=== PATIENT | male | born 1950 | race Two or more races ===

== ENCOUNTER 2021-03-25 13:43 | Emergency (ER) | payer OTHER, SELFPAY ==
[2021-03-25 13:44] VITALS: BP 184/81; PULSE 81; RESP 17; TEMP 36.8; O2SAT 97; BMI 35.4
--- NOTE | 2021-03-25 13:56 | CT_ITS ---
PROCEDURE: CT KNEE LT WO CON CLINICAL HISTORY: stepped on by horse, knee trauma Posttraumatic pain COMPARISON: No exams were available for comparison TECHNIQUE: Axial images obtained with sagittal and coronal reformats. All CT scans at the facility use one or more dose reduction, viz: automated exposure control, ma/kV adjustment per patient size (including targeted exams where dose is matched to indication, i.e. head), or iterative reconstruction technique. FINDINGS: No acute fracture or dislocation is evident. Mild osteoarthritic changes are present involving all 3 compartments. Focal abnormal soft tissue density is present medial to the proximal tibia measuring 7 x 5.5 cm cephalad caudad and transverse with a thickness 2.2 cm consistent with a hematoma. This is along the superficial aspect of the proximal tibia medially and anteriorly. This does appear superficial to the anterior tibial fascia. There is mild generalized subcutaneous edema of the knee. Small knee joint effusion is present. IMPRESSION: 1. No evidence of acute fracture. 2. Prominent hematoma along the anterior and medial aspect of the proximal tibia 3. Mild osteoarthritic change with small knee joint effusion Dictated by: Nathan Eduardo MD 03/25/2021 16:09 Nathan Eduardo MD in [place] 03/25/2021 16:10
[2021-03-25 14:30] VITALS: BP 158/85; PULSE 70; O2SAT 97
--- NOTE | 2021-03-25 14:31 | HMH.EDEXTP ---
ED Disposition Clinical Impression: Traumatic hematoma of lower leg Disposition: Home, Self-Care Condition on Discharge: Good Additional Instructions: Return the emergency room for worsening pain swelling or any other concerns within the next 8 hours otherwise follow-up as recommended Prescriptions: Diclofenac Potassium [Diclofenac 50mg Tab] 50 mg PO BID PRN 10 Days #20 tab PRN Reason: Mild To Moderate Pain Transmission Status: Pending to [id number] Referrals: Provider,Referral, [Primary Care Provider] - - Critical Care Critical Care Time: No Attestation: On 03/25/21, the high probability of a clinically significant, sudden or life threatening deterioration of the following system(s) required my full and direct attention, intervention and personal management. The time I documented below is in addition to time spent performing reported procedures but includes the following listed in this critical care notation. Medical Decision Making - Medical Records Medical records reviewed: Yes: I reviewed the patient's medical records. - Camilo Inquiry Pt receiving controlled substance: No Vital Signs: 03/25/21 13:44 03/25/21 14:30 03/25/21 15:31 Temperature 98.2 F Temperature Source Oral Pulse Rate 70 79 Pulse Rate [Right] 81 Respiratory Rate 17 Blood Pressure 158/85 H 159/105 H Blood Pressure [Right Arm] 184/81 H Blood Pressure Mean 104 123 Blood Pressure Mean [Right Arm] 115 02 Sat by Pulse Oximetry 97 97 98 Medical Decision Narrative: 70-year-old male with left knee direct trauma 1 week ago and significant ecchymosis at the site now. He does have neurovascularly intact distally. X-ray reportedly negative last week. CT scan of knee obtained today. The scan of knee shows no acute fracture. He does have a resolving hematoma that was visualized. It appears that he had significant soft tissue damage during the injury. He does not have a primary care physician plan to give him referral for this and also recommend symptomatic treatment as well as anti-inflammatories for the pain. Extremity Problem HPI - General Chief complaint: Extremity Injury, Lower Stated complaint: wc 03/18 injury Lt foot Time Seen by Provider: 03/25/21 13:45 Mode of Arrival: Family Vehicle Limitations: No Limitations Description of Symptoms (Recalled from ER Triage Doc. by RN): PATIENT GIRLFRIEND REPORTS PATIENT WAS STEPPED ON HIS LEFT LEG BY A HORSE ON 03/18/21 CAUSING A LEFT LEG INJURY. UPON ASSESSMENT, PT'S LEG IS SWOLLEN. PT HAS A CAP REFILL BELOW INJURY LESS THAN 2 SECONDS. PT GIRLFRIEND REPORTS PT SPEAKS VERY LITTLE KHMER. PT AMBULATORY IN ED TRIAGE. PT GIRLFRIEND REPORTS A NEGATIVE EXRAY AT [facility] ON 03/18/21 - History of Present Illness HPI Narrative: -year-old male presents with persistent pain after getting stepped on by a horse a week ago. Reportedly he went to an outside hospital [facility] and had a negative x-ray and was discharged home. He has had persistent pain and swelling since that time dull nonradiating and difficulty bearing weight. MD Complaint: joint paint Onset (ago): week(s) (1) Consistency: constant Location: left Quality: dull - Related Data Previous Rx's Medication Instructions Recorded Albuterol Sulfate [Albuterol HFA 1 - 2 puffs IH Q4-6H PRN #1 inh 12/08/19 Inhaler] Azithromycin [Z-Tristian 250mg Tab*] 250 mg PO UD DOSE PK #6 tab 12/08/19 Mometasone/Formoterol [Dulera 200 2 puffs IH BID #1 hfa.aer.ad 12/08/19 Mcg/5 Mcg Inhaler] predniSONE [Deltasone 10mg tablet] 10 mg PO BID 5 Days #10 tab 12/08/19 Diclofenac Potassium [Diclofenac 50 mg PO BID PRN 10 Days #20 tab 03/25/21 50mg Tab] Allergies Allergy/AdvReac Type Severity Reaction Status Date / Time ibuprofen Allergy Verified 12/08/19 13:37 [facility] History - Hepatitis A Screen Drug use history?: No High risk sexual behaviors?: No History of sexually transmitted infection?: No Cur
[2021-03-25 15:31] VITALS: BP 159/105; PULSE 79; O2SAT 98
[2021-03-25 16:26] VITALS: BP 159/105; PULSE 79; RESP 18; TEMP 36.7; O2SAT 99
== END 2021-03-25 16:32 | disposition home or self-care (01) ==
PROVIDERS: Emergency Provider Emergency Medicine
DX: S80.10XA Contusion of unspecified lower leg, initial encounter (principal); W55.19XA Other contact with horse, initial encounter; Y92.69 Other specified industrial and construction area as the place of occurrence of the external cause; Y99.0 Civilian activity done for income or pay
CPT/HCPCS: 73700; 99282

== ENCOUNTER 2021-04-25 13:56 | Emergency (ER) | payer OTHER, SELFPAY ==
[2021-04-25 13:58] VITALS: BP 158/90; PULSE 75; RESP 16; TEMP 36.6; O2SAT 98; BMI 31.5
--- NOTE | 2021-04-25 15:37 | XR_ITS ---
PROCEDURE: XR TIBIA FIBULA LT 2V CLINICAL INDICATION: kicked by horse COMPARISON: No exams were available for comparison FINDINGS: No fracture or dislocation. No lytic or blastic change. There is normal mineralization. Minimal osteoarthritic change at the knee joint. Vascular calcification noted. Other findings:None. IMPRESSION: No acute findings. Dictated by: Nathan Eduardo MD 04/25/2021 17:05 Nathan Eduardo MD in [place] 04/25/2021 17:05
--- NOTE | 2021-04-25 15:37 | XR_ITS ---
PROCEDURE: XR FEMUR LT 2V CLINICAL INDICATION: kicked by horse Posttraumatic pain COMPARISON: No exams were available for comparison FINDINGS: No fracture or dislocation. No lytic or blastic change. There is normal mineralization. The joint spaces are well-preserved. No significant degenerative/arthritic changes. No erosive changes evident. Other findings:Small nonspecific area of soft tissue calcification noted along the proximal femoral shaft anteriorly IMPRESSION: No acute findings. Dictated by: Nathan Eduardo MD 04/25/2021 17:05 Nathan Eduardo MD in [place] 04/25/2021 17:05
[2021-04-25 15:43] VITALS: PULSE 68; O2SAT 91
[2021-04-25 16:00] VITALS: BP 152/88; PULSE 60
[2021-04-25 16:30] VITALS: BP 158/89; PULSE 56; O2SAT 95
--- NOTE | 2021-04-25 17:09 | HMH.EDGENADL ---
ED Disposition Clinical Impression: Lower extremity pain, left Disposition: Home, Self-Care Condition on Discharge: Good Referrals: Provider,Referral, [Primary Care Provider] - 3 days (PCP) Time of Disposition: 17:15 - Critical Care Critical Care Time: No Attestation: On 04/25/21, the high probability of a clinically significant, sudden or life threatening deterioration of the following system(s) required my full and direct attention, intervention and personal management. The time I documented below is in addition to time spent performing reported procedures but includes the following listed in this critical care notation. Medical Decision Making - Medical Records Medical records reviewed: Yes: I reviewed the patient's medical records. - Camilo Inquiry Pt receiving controlled substance: No Vital Signs: 04/25/21 13:58 04/25/21 15:43 04/25/21 16:00 Temperature 98 F Temperature Source Oral Pulse Rate 68 60 Pulse Rate [Radial] 75 Respiratory Rate 16 Blood Pressure 152/88 H Blood Pressure [Right Arm] 158/90 H Blood Pressure Mean 116 Blood Pressure Mean [Right Arm] 112 Blood Pressure Position [Right Arm] Sitting 02 Sat by Pulse Oximetry 98 91 L Oxygen Delivery Method Room Air 04/25/21 16:30 Temperature Temperature Source Pulse Rate 56 L Pulse Rate [Radial] Respiratory Rate Blood Pressure 158/89 H Blood Pressure [Right Arm] Blood Pressure Mean 106 Blood Pressure Mean [Right Arm] Blood Pressure Position [Right Arm] 02 Sat by Pulse Oximetry 95 Oxygen Delivery Method Orders (Tests/Meds): ORDERS Category Date Time Status XR tibia fibula LT 2V Stat Exams 04/25/21 15:37 Taken - Radiology Data #1 Image(s): Femur, Tib/Fib Image Reviewed: Yes I reviewed the patient's radiology image Preliminary Findings: Normal/NAD Medical Decision Narrative: 70yo M evaluated for follow-up of possible blood clot. Patient story does not make much sense but I have little concern for DVT as the patient's significant other reports he underwent ultrasound and CAT scan was only prescribed baby aspirin. Sonography is gone for the day so the patient will be provided a prescription to obtain repeat Dopplers as an outpatient. Patient ambulates without difficulty. He is appropriate stable for discharge home. General Adult HPI - General Chief complaint: PAIN Stated complaint: wants xray lt leg kicked by horse 03/25 Time Seen by Provider: 04/25/21 17:09 Mode of Arrival: Ambulatory Limitations: No Limitations Description of Symptoms (Recalled from ER Triage Doc. by RN): TO ED PER PVT CAR CONFUSING HX PT WAS KICKED BY A HORSE LAST MONTH AND SEEN AT THE OUTER [facility] WITH BLOOD CLOT LT LEG AND TOLD TO FOLLOW UP IN 3 WEEKS TO SEE IF HE STILL HAD A BLOOD CLOT PT CONTINUES TO C/O PAIN LT LOWER LEG SWELLING LT FOOT. - History of Present Illness HPI narrative: 70yo M reports to the emergency department for evaluation of left leg pain. Patient does not speak Guyanese but his girlfriend is at bedside and translates. Patient was kicked by a horse approximately 3 weeks ago and was taken to the emergency of [place] for evaluation. She reports there he underwent ultrasound and CAT scan and was sent home with a prescription for aspirin 81 mg. She reports no additional medications were prescribed at that time. They were told to follow-up in 2 to 3 weeks. Patient does not have a PCM so they reported to the ER. He complains of pain with ambulation. His girlfriend states his leg is no longer blue and has a normal color. He still has some swelling to the extremity. - Related Data Home Medications Medication Instructions Recorded Confirmed Aspirin [Aspirin 81mg chewable 81 mg PO DAILY 04/25/21 04/25/21 tab] Allergies Allergy/AdvReac Type Severity Reaction Status Date / Time ibuprofen Allergy Verified 12/08/19 13:37 [facility] History - Hepatitis A Screen Drug use history?: No
[2021-04-25 17:23] VITALS: BP 172/85; PULSE 56; RESP 18; TEMP 36.7; O2SAT 98
== END 2021-04-25 17:23 | disposition home or self-care (01) ==
PROVIDERS: Emergency Provider Family Medicine
DX: M79.605 Pain in left leg (principal); S80.12XD Contusion of left lower leg, subsequent encounter; W55.12XD Struck by horse, subsequent encounter
CPT/HCPCS: 73552; 73590; 99282

== ENCOUNTER 2021-05-12 11:17 | Emergency (ER) | payer OTHER, SELFPAY ==
[2021-05-12 11:39] VITALS: BP 155/94; PULSE 65; RESP 19; TEMP 36.8; O2SAT 98; BMI 30.1
--- NOTE | 2021-05-12 12:08 | HMH.EDUTC ---
[facility] Disposition Clinical Impression: Other contact with horse, subsequent encounter Disposition: Home, Self-Care Condition on Discharge: Good Instructions: DI for Leg Pain Additional Instructions: His venous doppler done today was negative for a dvt. It is reasonable to assume that with no blood clot present then he should be safe to return to work. He needs a primary care doctor. We will give you a list of ones that are taking new patients. Please call them and find a physician. If you have worsening swelling, redness, warmth over the affected area make sure you folllow up apap. GO TO THE ER FOR ANY WORSENING SYMPTOMS OR CONCERNS( I put in a referral to orthopedics (Dr. Walker). If you continues to have issues with pain and swelling at the site, please follow up with orthopedics. That would be the next step if he has more problems. But, he could follow up with a primary care physician for this too. Referrals: Provider,MD Guanaco [Primary Care Provider] - Giovanni Walker MD [Staff Physician] - Forms: Work/School Release Time of Disposition: 13:35 Medical Decision Making - Medical Records Medical records reviewed: No: I reviewed the patient's medical records. - Camilo Inquiry Pt receiving controlled substance: No Vital Signs: 05/12/21 11:39 05/12/21 13:41 Temperature 98.3 F 98 F Temperature Source Oral Pulse Rate 73 Pulse Rate [Left] 65 Respiratory Rate 19 18 Blood Pressure 150/95 H Blood Pressure [Right Arm] 155/94 H Blood Pressure Mean [Right Arm] 114 02 Sat by Pulse Oximetry 98 Oxygen Delivery Method Room Air - US Data US Images: Lower Extremity ED US Reviewed: Yes: I have reviewed the patient's US results Preliminary Findings: Normal/NAD [facility] HPI - General Stated complaint: needs to return back to work from w comp Time Seen by Provider: 05/12/21 12:25 Mode of Arrival: Ambulatory Source of Information: Patient Limitations: No Limitations Description of Symptoms (Recalled from Triage Doc. by RN): pt needs to be released back to work from workers comp injury. HEENT Symptoms (Recalled from RN notes): No Resp Symptoms (Recalled from RN notes): No Skin Symptoms (Recalled from RN notes): No MS Symptoms (Recalled from RN notes): No Functional Status (Recalled from RN notes): na - History of Present Illness Provider Complaint: He is here requesting to be seen to be released to go back to work. 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 He does not have a primary care physician to see for this. He was in the er around 3 weeks for the same thing. He was given an outpatient order for a venous doppler of the affected leg before he could be released. He has not had this test done. He states that his leg swelling is much better. He denies any leg pain or other complaints. He does still have a raised area just below his knee on the medial to anterior part of the leg. There is no redness or warmth. There is no additional leg swelling noted. - Worker's Comp Is this a Worker's Comp case?: No [facility] History - Hepatitis A Screen Drug use history?: No High risk sexual behaviors?: No History of sexually transmitted infection?: No Currently employed?: No Childcare worker?: No Do you have indoor plumbing?: Yes Do you have electricity?: Yes Attestation statement:: This patient has been screened for Hepatitis A risk factors. I have reviewed the patient's past medical history: Yes ROS Obtained: Yes All systems reviewed & no additional complaints - Constitutional Constitutional: Denies chills, Denies fever(s) - Cardiovascular Cardiovascular: Denies chest pain - Respiratory Respiratory: Denies chest congestion, Denies cough, Denies dyspnea, Denies coughing up blood - Musculoskeletal Musculoskeletal: Reports as per HPI - Integumentary/Breasts Skin/Breast: Denies redness, Denies rash, Denies wounds Physical Exam - Genera
--- NOTE | 2021-05-12 12:37 | CA_ITS ---
APPROVED REPORT Left Lower Extremity Venous Study for DVT. It Infrastructure Manager: TAYO Ferguson Lower Extremity Pain: RULE OUT BLOOD CLOT, Pt. was kicked by a horse Vein Imaging CFV (L): compressive, spontaneous, phasic, augmentation SFJ (L): compressive, spontaneous, phasic, augmentation FEM (L): compressive, spontaneous, phasic, augmentation POP (L): compressive, spontaneous, phasic, augmentation PTV (L): compressive, spontaneous, phasic, augmentation GSV (L): compressive, spontaneous, phasic, augmentation Peroneals (L):compressive, spontaneous, phasic, augmentation GAS (L): compressive, spontaneous, phasic, augmentation Findings Study suggests no evidence of DVT in the lower left extremity. Conclusion Study suggests no evidence of DVT in the lower left extremity. 6cm complex fluid collection anteromedial knee region consistent with suprapatellar effusion Electronically signed by : Nathan Eduardo MD 05/12/2021 15:35:31
[2021-05-12 13:41] VITALS: BP 150/95; PULSE 73; RESP 18; TEMP 36.6
== END 2021-05-12 13:42 | disposition home or self-care (01) ==
PROVIDERS: Emergency Provider Nurse Practitioner Family
DX: R22.42 Localized swelling, mass and lump, left lower limb (principal); W55.19XD Other contact with horse, subsequent encounter
CPT/HCPCS: 93971; 99202; G0463

== ENCOUNTER 2021-11-09 12:29 | Emergency (ER) | payer SELFPAY ==
[2021-11-09 12:31] VITALS: BP 159/90; PULSE 87; RESP 16; TEMP 36.9; O2SAT 95; BMI 28.8
--- NOTE | 2021-11-09 12:47 | XR_ITS ---
FINAL REPORT TECHNIQUE: Chest PA & Lateral CLINICAL HISTORY: cough FINDINGS: 2 views of the chest were performed. The heart size is normal. The mediastinum is within normal limits. There is scarring or atelectasis in the lung bases. There are no pleural effusions. There is no pneumothorax. The bony thorax appears intact. IMPRESSION: Scarring or atelectasis in the lung bases. Recommend follow-up. Reviewed, Interpreted and Dictated by Ludin Carrasco MD Transcribed by Zack Jarquin Authenticated by Ludin Carrasco MD on 11/09/2021 01:16:21 PM [facility]
[2021-11-09 12:58] VITALS: BMI 28.8
[2021-11-09 13:08] LABS: Coronavirus 19, PCR Not Detected (NotDetected); Influenza A, PCR Not Detected (NotDetected); Influenza B, PCR Not Detected (NotDetected)
--- NOTE | 2021-11-09 13:08 | PC.NURSE ---
RT at BS
--- NOTE | 2021-11-09 13:29 | HMH.EDGENADL ---
ED Disposition Clinical Impression: Acute asthma exacerbation Qualifiers: Asthma severity: mild Asthma persistence: intermittent Qualified Code(s): J45.21 - Mild intermittent asthma with (acute) exacerbation Disposition: Home, Self-Care Condition on Discharge: Good Instructions: DI for Asthma -- Adult Prescriptions: Albuterol Sulfate [Albuterol Sulfate Hfa] 2 puff IH Q4HP PRN #1 each PRN Reason: Wheezing Transmission Status: Pending to [facility] methylPREDNISolone [Medrol 4mg tab] 4 mg PO DIRECTED #21 tab Transmission Status: Pending to [facility] Referrals: Provider,Referral, [Primary Care Provider] - - Critical Care Critical Care Time: No Attestation: On 11/09/21, the high probability of a clinically significant, sudden or life threatening deterioration of the following system(s) required my full and direct attention, intervention and personal management. The time I documented below is in addition to time spent performing reported procedures but includes the following listed in this critical care notation. Medical Decision Making - Medical Records Medical records reviewed: Yes: I reviewed the patient's medical records. - Camilo Inquiry Pt receiving controlled substance: No Vital Signs: 11/09/21 12:31 11/09/21 13:30 Temperature 98.4 F Temperature Source Oral Pulse Rate 90 Pulse Rate [Right] 87 Respiratory Rate 16 16 Blood Pressure 159/93 H Blood Pressure [Right Arm] 159/90 H Blood Pressure Mean 107 Blood Pressure Mean [Right Arm] 113 Blood Pressure Source [Right Arm] Automatic Cuff Blood Pressure Position [Right Arm] Sitting 02 Sat by Pulse Oximetry 95 98 Oxygen Delivery Method Room Air Orders (Tests/Meds): ED MEDICATIONS Discontinued Medications Generic Name Dose Route Start Last Admin Trade Name Freq PRN Reason Stop Dose Admin Albuterol/Ipratropium 3 ml 11/09/21 12:47 Ipratropium/Albuterol 3 Ml Neb IH 11/09/21 12:48 ONCE ONE Prednisone 60 mg 11/09/21 12:47 11/09/21 13:20 Prednisone 20mg Tab PO 11/09/21 12:48 60 mg ONCE ONE Administration ORDERS Category Date Time Status XR chest 2V Stat Exams 11/09/21 12:47 Taken Rapid PCR Covid and Flu A/B Stat Lab 11/09/21 13:03 Received - Radiology Data #1 Image(s): Chest Image Reviewed: Yes I reviewed the patient's radiology results, Yes I reviewed the patient's radiology image, Yes I have reviewed radiologist's interpretation Atelectasis in the bases - Reevaluation(s) Time: 14:20 Reevaluation #1: On reevaluation, the patient is feeling much better. He is breathing comfortably on room air. Findings are consistent with acute asthma exacerbation. Patient be discharged with inhaler and short course steroids. Needs to follow-up with PCP. Given strict return precautions. Verbalized understanding. Medical Decision Narrative: 70-year-old male presented to the emergency department with cough and wheezing. Symptoms seem consistent with acute asthma exacerbation. Patient has no respiratory distress or desaturations. Treated symptomatically. Work-up initiated. General Adult HPI - General Chief complaint: Upper Respiratory Infection Stated complaint: cough, congestion Time Seen by Provider: 11/09/21 12:35 Mode of Arrival: Ambulatory Limitations: No Limitations Description of Symptoms (Recalled from ER Triage Doc. by RN): Pt c/o cough for the past month. Advises he has hx of asthma and got any inhaler last time he had these symptoms and it helped. Denies any other symptoms at this time - History of Present Illness HPI narrative: This is a 18-year-old male presented to the emergency department with worsening cough for the last month or so. Patient has a history of asthma apparently, however he does not normally take medications for this. Patient states that he has been handling horses recently and his cough is been getting worse. Has had some mild wheez
[2021-11-09 13:30] VITALS: BP 159/93; PULSE 90; RESP 16; O2SAT 98
--- NOTE | 2021-11-09 13:34 | PC.NURSE ---
Pt was assessed upon arrival by myself and Dr. Garcia using the mechanic helper via ipad.
[2021-11-09 14:00] VITALS: BP 146/74; PULSE 83; RESP 16; O2SAT 99
[2021-11-09 14:30] VITALS: BP 150/79; PULSE 81; RESP 15; O2SAT 98
[2021-11-09 14:39] VITALS: BP 159/70; PULSE 68; RESP 16; TEMP 36.8; O2SAT 98
== END 2021-11-09 14:40 | disposition home or self-care (01) ==
PROVIDERS: Emergency Provider Emergency Medicine
DX: J45.21 Mild intermittent asthma with (acute) exacerbation (principal)
CPT/HCPCS: 71046; 99282; C9803; U0003; U0005

== ENCOUNTER 2022-05-17 14:35 | Emergency (ER) | payer OTHER, SELFPAY ==
[2022-05-17 14:45] VITALS: BP 154/84; PULSE 70; RESP 18; TEMP 37; O2SAT 96; BMI 32.9
[2022-05-17 14:50] VITALS: BP 141/82; PULSE 67; O2SAT 97
--- NOTE | 2022-05-17 15:02 | HMH.EDGENADL ---
ED Disposition Clinical Impression: Mcgregor's palsy Disposition: Home, Self-Care Condition on Discharge: Good Instructions: DI for [place] Palsy Additional Instructions: Take medications as previously prescribed. Artificial tears every hour while awake Ophthalmic ointment at night Eye should be taped shut at night Protective glasses or goggles to protect from sunshine and wind Follow-up with a primary care provider or neurologist, Dr. Floyd, for further care of Mcgregor's palsy. You are being provided with a list of physicians available for follow-up of your condition. Please call a physician on this list to arrange a follow-up appointment as soon as possible. Tylenol 3 as needed for tooth extraction pain. Follow-up with your dentist for further care of your tooth extraction pain. Additional instructions for CONTROLLED SUBSTANCES: You have been prescribed a medication that is a controlled substance. Controlled substances include pain medications known as opiates and sedative nerve medications known as benzodiazepines. Tramadol, fioricet, and gabapentin are also controlled substances. Some common opiates include: Codeine (such as Tylenol #3) Hydrocodone (Vicodin, Lortab, Lorcet, Revere) Oxycodone (Percocet, Percodan, Oxycodone, Oxy IR) Some common benzodiazepines include: Diazepam (Valium) Lorazepam (Ativan) Alprazolam (Xanax) Clonazepam (Klonopin) Oxazepam (Serax) All of these controlled substances are highly addictive and frequently abused. Misuse can and frequently does lead to addiction as well as overdose and . Medication should be stored in a locked cabinet or other secure storage unit. Do not store the medication in a motor vehicle. Short term supplies, 3 days or less, are prescribed because of the highly addictive nature of the medication. Any of the controlled substance medication NOT taken should be disposed of properly and NOT SAVED. The recommended method of disposing of unused medications is: Place the medicines in a sealable plastic bag. If the medicine is a solid, crush it or add water to dissolve it. Add something undesirable (cat litter, coffee grounds, etc.) Dispose of sealed bag in household trash Do not flush or pour unused medicines down a sink or drain. Controlled substances should not be shared, given away or sold. Because of the addictive nature and frequent abuse, these medications are sometimes stolen. These medications should be kept in a safe place where they cannot be stolen. Do not keep them in your car or purse. Lost or stolen prescriptions for controlled substances WILL NOT BE REFILLED in this emergency department, regardless of whether a police report was filed. Prescriptions: Acetaminophen with Codeine [Tylenol with Codeine #3 tablet] 1 tab PO Q6HP PRN #10 tab PRN Reason: Moderate Pain Transmission Status: Sent to [facility] Referrals: Provider,MD Guanaco [Primary Care Provider] - Reyna Floyd MD [Staff Physician] - - Critical Care Critical Care Time: No Attestation: On 05/17/22, the high probability of a clinically significant, sudden or life threatening deterioration of the following system(s) required my full and direct attention, intervention and personal management. The time I documented below is in addition to time spent performing reported procedures but includes the following listed in this critical care notation. Medical Decision Making - Camilo Inquiry Pt receiving controlled substance: Yes Camilo was queried for this patient: Yes Risks and benefits of using a controlled substance: were discussed with pt by me Vital Signs: 05/17/22 14:45 05/17/22 14:50 Temperature 98.6 F Temperature Source Oral Pulse Rate 67 Pulse Rate [Left Radial] 70 Respiratory Rate 18 Blood Pressure 141/82 H Blood Pressure [Right Arm] 154/84 H Blood Pressure Mean [Right Arm] 107 Blood Pressure Source Au
--- NOTE | 2022-05-17 15:04 | PC.NURSE ---
MD to the bedside for initial evaluation
--- NOTE | 2022-05-17 15:12 | PC.NURSE ---
requesting trasnlator via ipad. Jane at the bedside with for ipad translation
--- NOTE | 2022-05-17 15:16 | PC.NURSE ---
Spoke with Asiya with [facility] medical records requesting records to be sent to us per ER MD request.
[2022-05-17 15:55] VITALS: BP 152/91; PULSE 61; RESP 18; TEMP 37; O2SAT 98
--- NOTE | 2022-05-17 15:59 | PC.NURSE ---
d/c instructions verbalized to pt at this time
== END 2022-05-17 16:00 | disposition home or self-care (01) ==
PROVIDERS: Emergency Provider Emergency Medicine
DX: G51.0 Bell's palsy (principal)
CPT/HCPCS: 99282

== ENCOUNTER 2022-05-27 18:11 | Emergency (ER) | payer SELFPAY ==
[2022-05-27 18:15] VITALS: BP 144/78; PULSE 68; RESP 18; TEMP 36.6; O2SAT 99; BMI 24.8
--- NOTE | 2022-05-27 18:45 | HMH.EDUTC ---
[facility] Disposition Clinical Impression: Mcgregor's palsy Disposition: Home, Self-Care Condition on Discharge: Good Instructions: DI for [place] Palsy Additional Instructions: follow up with pcp may need referral to neurology if symptoms worsen return or be seen in ed Prescriptions: predniSONE [Prednisone 20mg Tab] 20 mg PO BID #10 tab Prescription Printed Referrals: Provider,Referral, [Primary Care Provider] - Time of Disposition: 18:50 Medical Decision Making - Camilo Inquiry Pt receiving controlled substance: No [facility] HPI - General Chief complaint: Urgent [facility] Stated complaint: facial swelling, tooth extracted 05/12 Time Seen by Provider: 05/27/22 18:45 Mode of Arrival: Ambulatory Source of Information: Patient, Significant Other Limitations: No Limitations - History of Present Illness Provider Complaint: 70 yr old female presents for bells palsy. per spouse pt was seen and dx with bells palsy a couple weeks ago after having a tooth pulled and it has not improved. no new symptoms - Related Data Previous Rx's Medication Instructions Recorded Albuterol Sulfate [Albuterol 2 puff IH Q4HP PRN #1 each 11/09/21 Sulfate Hfa] methylPREDNISolone [Medrol 4mg 4 mg PO DIRECTED #21 tab 11/09/21 tab] predniSONE [Prednisone 20mg 20 mg PO BID #10 tab 05/27/22 Tab] Allergies Allergy/AdvReac Type Severity Reaction Status Date / Time No Known Allergies Allergy Verified 11/09/21 13:34 [facility] History - Hepatitis A Screen Attestation statement:: This patient has been screened for Hepatitis A risk factors. I have reviewed the patient's past medical history: Yes ROS Obtained: Yes Systems reviewed as appropriate & no additional complaints - Constitutional Constitutional: Reports system reviewed and no additional complaints, except as docu, Denies fever(s) - Eyes Eyes: Reports system reviewed and no additional complaints, except as docu, Reports as per HPI - ENT Ears, Nose, Mouth, and Throat: Reports system reviewed and no additional complaints, except as docu, Reports other - Cardiovascular Cardiovascular: Reports system reviewed and no additional complaints, except as docu, Denies chest pain - Respiratory Respiratory: Reports system reviewed and no additional complaints, except as docu, Denies chest congestion - Gastrointestinal Gastrointestingal: Reports: system reviewed and no additional complaints, except as docu. Denies: abdominal pain - Musculoskeletal Musculoskeletal: Reports system reviewed and no additional complaints, except as docu, Denies back pain - Integumentary/Breasts Skin/Breast: Reports system reviewed and no additional complaints, except as docu, Denies rash - Neurologic Neurologic: Reports system reviewed and no additional complaints, except as docu, Denies dizziness, Denies headache(s) - Endocrine Endocrine: Reports system reviewed and no additional complaints, except as docu, Denies fatigue - Hematologic/Lymphatic Henatologic/Lymphatic: Reports system reviewed and no additional complaints, except as docu, Denies easy bruising - Allergic/Immunologic Allergic/Immunologic: Reports system reviewed and no additional complaints, except as docu, Denies itchy eyes Physical Exam - General General appearance: alert, in no apparent distress - Head Head exam: atraumatic, normocephalic, normal inspection - Eye Eye exam: Present: normal appearance, PERRL - ENT ENT exam: Present: normal oropharynx, mucous membranes moist, TM's normal bilaterally, normal external ear exam - Expanded ENT Exam Comment: left side facial droop - Neck Neck exam: Present: normal inspection, full ROM, trachea midline. Absent: meningismus, lymphadenopathy - Chest Chest inspection: Present: normal inspection, symmetric chest wall rise. Absent: tenderness - Respiratory Respiratory exam: Present: normal lung sounds bilaterally. Absent: respiratory distres
[2022-05-27 18:53] VITALS: BP 144/78; PULSE 68; RESP 18; TEMP 36.6; O2SAT 99
== END 2022-05-27 18:58 | disposition home or self-care (01) ==
PROVIDERS: Emergency Provider Nurse Practitioner Family
DX: G51.0 Bell's palsy (principal)
CPT/HCPCS: 99282

== ENCOUNTER 2022-06-11 20:32 | Emergency (ER) | payer OTHER, SELFPAY ==
[2022-06-11 20:50] VITALS: BP 115/89; PULSE 75; RESP 18; TEMP 36.8; O2SAT 98; BMI 28.5
--- NOTE | 2022-06-11 20:56 | XR_ITS ---
PROCEDURE INFORMATION: Exam: XR Left Finger(s) Exam date and time: 06/11/2022 9:10 PM Age: 70 years old Clinical indication: Injury or trauma; Other: Slammed finger in door; Blunt trauma (contusions or hematomas); Left; Index finger; Additional info: Injury to 2nd digit, laceration and bruising near nail bed TECHNIQUE: Imaging protocol: Radiologic exam of the Left fingers. Views: Minimum 2 views. COMPARISON: No relevant prior studies available. FINDINGS: Bones/joints: No acute fracture or malalignment. Soft tissues: Soft tissue edema noted. IMPRESSION: No acute osseous abnormality in the left index finger.
[2022-06-11 21:08] VITALS: BP 164/84; PULSE 81; O2SAT 98
[2022-06-11 21:38] VITALS: BP 170/89; PULSE 76; O2SAT 96
[2022-06-11 22:08] VITALS: BP 167/93; PULSE 78; O2SAT 96
--- NOTE | 2022-06-11 23:34 | PC.NURSE ---
ED doctor in room with patient for suturing
--- NOTE | 2022-06-11 23:51 | HMH.EDWNDL ---
ED Disposition Clinical Impression: Finger laceration Qualifiers: Encounter type: initial encounter Finger: index finger Damage to nail status: without damage Foreign body presence: without foreign body Laterality: left Qualified Code(s): S61.211A - Laceration without foreign body of left index finger without damage to nail, initial encounter Injury of finger Qualifiers: Encounter type: initial encounter Laterality: left Qualified Code(s): S69.92XA - Unspecified injury of left wrist, hand and finger(s), initial encounter Disposition: Home, Self-Care Condition on Discharge: Good Instructions: DI for Laceration Repair -- Complex Additional Instructions: sutures out 10-12 days and see pcp this week for follow up Prescriptions: cephALEXin [cephALEXin 500mg capsule*] 500 mg PO TID #30 cap Transmission Status: Pending to [facility] Referrals: Provider,Referral, [Primary Care Provider] - - Critical Care Critical Care Time: No Attestation: On 06/11/22, the high probability of a clinically significant, sudden or life threatening deterioration of the following system(s) required my full and direct attention, intervention and personal management. The time I documented below is in addition to time spent performing reported procedures but includes the following listed in this critical care notation. Medical Decision Making - Medical Records Medical records reviewed: Yes: I reviewed the patient's medical records. - Camilo Inquiry Pt receiving controlled substance: No Vital Signs: 06/11/22 20:50 06/11/22 21:08 06/11/22 21:38 Temperature 98.2 F Temperature Source Oral Pulse Rate 81 76 Pulse Rate [Apical] 75 Respiratory Rate 18 Blood Pressure 164/84 H 170/89 H Blood Pressure [Right Arm] 115/89 Blood Pressure Mean 105 Blood Pressure Mean [Right Arm] 97 Blood Pressure Source [Right Arm] Automatic Cuff Blood Pressure Position [Right Arm] Sitting 02 Sat by Pulse Oximetry 98 98 96 Oxygen Delivery Method Room Air Room Air Room Air 06/11/22 22:08 Temperature Temperature Source Pulse Rate 78 Pulse Rate [Apical] Respiratory Rate Blood Pressure 167/93 H Blood Pressure [Right Arm] Blood Pressure Mean 108 Blood Pressure Mean [Right Arm] Blood Pressure Source [Right Arm] Blood Pressure Position [Right Arm] 02 Sat by Pulse Oximetry 96 Oxygen Delivery Method Room Air - Lab Data Lab results reviewed: Yes: I reviewed the patient's lab results. Orders (Tests/Meds): ED MEDICATIONS Discontinued Medications Generic Name Dose Route Start Last Admin Trade Name Katina PRN Reason Stop Dose Admin Acetaminophen/Codeine Phosphate 1 packet 06/11/22 23:37 06/11/22 23:40 Acetaminophen 300mg W/Codeine 30mg Take Home Pack (6) PO 06/11/22 23:38 1 packet ONCE ONE Administration Cephalexin HCl 500 mg 06/11/22 23:37 06/11/22 23:41 Cephalexin 500mg Capsule PO 06/11/22 23:38 500 mg ONCE ONE Administration Tetanus/Reduced Diphtheria/Acell Pertussis 0.5 ml 06/11/22 20:56 06/11/22 20:58 Tet/Diphth/Pert-Adult 0.5ml Syringe IM 06/11/22 20:57 0.5 ml .ONCE ONE Administration - Radiology Data #1 Image(s): Hand Image Reviewed: Yes I have reviewed radiologist's interpretation Preliminary Findings: No Fracture Seen Medical Decision Narrative: has soft tissue injury with 1 cm lac Wound/Laceration HPI - General Chief Complaint: Extremity Injury, Upper Stated Complaint: [id number] Lac to Left index finger Time Seen by Provider: 06/11/22 23:00 Mode of Arrival: Ambulatory Source of Information: Patient, Spouse, Medical Record Limitations: No Limitations Description of Symptoms (Recalled from ER Triage Doc. by RN): Per pt, at approx 1430 today he slammed a barn door on his left index finger. Has difficulty bending in. Laceration noted around the nail bed and on proximal finger, closer to base. Pt states that his tetanus injection was last
[2022-06-12 00:08] VITALS: BP 165/95; PULSE 78; RESP 18; TEMP 36.8; O2SAT 99
== END 2022-06-12 00:11 | disposition home or self-care (01) ==
PROVIDERS: Emergency Provider Emergency Medicine
DX: S61.211A Laceration without foreign body of left index finger without damage to nail, initial encounter (principal); W23.0XXA Caught, crushed, jammed, or pinched between moving objects, initial encounter; Z23 Encounter for immunization
CPT/HCPCS: 12001; 73140; 90715; 99283

== ENCOUNTER 2022-06-22 16:57 | Emergency (ER) | payer OTHER, SELFPAY ==
[2022-06-22 17:47] VITALS: BP 158/86; PULSE 76; RESP 19; TEMP 37.3; O2SAT 100; BMI 32.9
--- NOTE | 2022-06-22 18:00 | PC.NURSE ---
patient comes in today for suture removal of left index finger. upon removal of dressing an odor was noticed. upon inspection of the site it is noted that derma mcghee was saturated over top of the sutures. attempts to remove sutures were extremely difficult due to dermabond. sutures were removed intact.
[2022-06-22 18:29] VITALS: BP 158/86; PULSE 76; RESP 19; TEMP 37.3
--- NOTE | 2022-06-22 18:29 | PC.NURSE ---
patient was given a list of accepting md's. patient and state that he does not want to follow up with a primary care. patient and instructed multiple times that he needs to follow up to have owund bed looked at due to nature of sutures and dermabond that was on incision.
== END 2022-06-22 18:32 | disposition home or self-care (01) ==
PROVIDERS: Emergency Provider Nurse Practitioner Family
DX: S69.90XA Unspecified injury of unspecified wrist, hand and finger(s), initial encounter (principal); Z48.02 Encounter for removal of sutures; Z79.51 Long term (current) use of inhaled steroids; Z79.52 Long term (current) use of systemic steroids; Z88.6 Allergy status to analgesic agent

== ENCOUNTER 2024-10-24 18:11 | Emergency (ER) | payer SELFPAY ==
[2024-10-24 18:20] VITALS: BP 129/77; PULSE 70; RESP 21; TEMP 36.8; O2SAT 96; BMI 27.9
--- NOTE | 2024-10-24 18:54 | ED_ITS ---
Discharge Plan Disposition Patient Disposition: Home, Self-Care Condition: Good Prescriptions Prescriptions: New albuterol sulfate 2.5 mg /3 mL (0.083 %) solution for nebulization 2.5 mg inhalation Q4-6H PRN (Reason: shortness of breath or wheezing) Qty: 75 0RF guaifenesin [Mucinex] 1,200 mg tablet extended release 12hr 1,200 mg PO Q12H PRN (Reason: congestion) Qty: 20 0RF azithromycin [Zithromax Z-Tristian] 250 mg tablet See Rx Instructions .ROUTE .COMPLEX 5 Days Qty: 6 0RF Rx Instructions: For 250 mg dose pack: take 500 mg today (day 1), then 250 mg for 4 days (days 2-5) prednisone 20 mg tablet 20 mg PO BID 5 Days Qty: 10 0RF Referrals Follow up/Referrals: Provider,Referral, MD [Primary Care Provider] - See instructions Activity Restrictions/Add. Instructions Additional Instructions/Restrictions: * Start antibiotic today. Be sure to complete entire prescription even if feeling better * Monitor temp. Tylenol every 4 hours as needed and / or ibuprofen every 6 hours as needed ( As long as your primary care physician has told you that it ok to take both. For fever/aches/pains ER if no less than 101 despite Tylenol or Motrin * Humidifier/vaporizer or hot steamy shower * Inhaler every 4-6 hours as needed like we discussed. If unsure how to use it, ask pharmacist to demonstrate how. Should help open airways and improve cough, wheezing, and shortness of breath * Mucinex for your cough Be sure to drink lots of water. *Start steroid today. Helps with inflammation therefore, cough and wheezing. Follow directions on the package. Reviewed side effects. Patient reports taking them before. Follow up IMMEDIATELY for new or worsening of symptoms OR no noticeable improvement over the next 48-72 hours. 911 immediately for any life threatening symptoms such as chest pain or difficulty breathing Clinical Impressions Clinical Impression: Bronchitis, Sinusitis Instructions Patient Instructions: DI for Sinusitis, Acute Bronchitis Print Language Print Language: Trinidadian Discharge ED Provider: Kelsea Mccloud [facility] HPI General Stated complaint: Diffculty breathing,congestion,cough Mode of Arrival: Ambulatory Source of Information: Patient Limitations: No Limitations Time Seen by Provider: 10/24/24 18:54 Description of Symptoms (Recalled from Triage Doc. 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 states that he has been having cough and chest congestion on and off for several weeks States that he gets bronchitis about this time every year States that he is coughing up some phelm at times but he is out of his albuterol for his nebulizer and needs some steriods and antibiotics to help him Related Data Previous Rx's ?Medication ?Instructions ?Recorded albuterol sulfate 2.5 mg/3 mL 2.5 mg (3 mL) inhalation Q4-6H PRN 10/24/24 (0.083 %) solution for nebulization shortness of breath or wheezing #75 mL azithromycin 250 mg tablet See Rx Instructions PO .COMPLEX 5 10/24/24 (Zithromax Z-Tristian) days #6 tabs guaifenesin 1,200 mg tablet, 1,200 mg PO Q12H PRN congestion 10/24/24 extended release 12 hr (Mucinex) #20 tabs prednisone 20 mg tablet 20 mg PO BID 5 days #10 tabs 10/24/24 Allergies Allergy/AdvReac Type Severity Reaction Status Date / Time ibuprofen Allergy Verified 06/23/22 11:06 Worker's Comp Is this a Worker's Comp case?: No [facility] Disclaimer: The information contained in this section may have been updated after the patient was seen, as this information can be updated by other users. Medical History (Updated 10/24/24 @ 19:20 by Kelsea Mccloud APRN) No significant past medical history Social History (System 06/23/22 @ 11:06 by Micah Paris) Smoking Status: Never smoker alcohol intake: never current occupational status: other Travel in the last 8 weeks: None Have you lived/traveled outside [place] in past 30 days?: No Contact w/someone who lives/traveled outside [place] past 30 days?: No Exposure to someone with infectious disease in past 14 days?: No Do you have a fever (greater than 100.4 F or 38 C)?: No Have you tested positive for COVID-19: No Exposed to someone with COVID-19 in past 14 days?: No Do you have a sore throat?: No Do you have a cough?: Yes Do you have any weakness?: No Do you have any diarrhea?: No Are you experiencing any unusual bleeding?: No Do you have any muscle aches/pain?: No Do you have any abdominal pain?: No Are you experiencing loss of taste or smell?: No ROS Obtained: Yes All systems reviewed & no additional complaints except as documented and Yes Systems reviewed as appropriate & no additional complaints except as documented Constitutional Constitutional: Reports system reviewed and no additional complaints, except as documented and Reports as per HPI Eyes Eyes: Reports system reviewed and no additional complaints, except as documented and Reports as per HPI ENT Ears, Nose, Mouth, and Throat: Reports system reviewed and no additional complaints, except as documented and Reports as per HPI Cardiovascular Cardiovascular: Reports system reviewed and no additional complaints, except as documented and Reports as per HPI Respiratory Respiratory: Reports system reviewed and no additional complaints, except as documented, Reports as per HPI, Reports chest congestion, Reports cough and Reports wheezing (hx asthma out of albuterol for his nebulizer) Allergic/Immunologic Allergic/Immunologic: Reports wheezing (hx asthma out of albuterol for his nebulizer) Physical Exam General General appearance: alert and in no apparent distress ENT ENT exam: Present mucous membranes moist Expanded ENT Exam Nose exam: Present sinus tenderness Respiratory Respiratory exam: Present normal lung sounds bilaterally and wheezes (mild wheezes noted); Absent respiratory distress Cardiovascular Cardiovascular exam: Present regular rate, normal rhythm and normal heart sounds Neurological Exam Neurological exam: Present alert, oriented X3 and normal gait Medical Decision Making Medical Records Screening: Per USPSTF and CDC recommendations, given the prevalence of disease in our region, it is our hospital?s policy to screen for HIV and viral Hepatitis for all patients aged 18 and over and those with ongoing risk factors. Camilo Inquiry Pt receiving controlled substance: No Camilo was queried for this patient: No Vital Signs: 10/24/24 18:20 Temperature 98.3 F Temperature Source Oral Pulse Rate [Left Brachial] 70 Respiratory Rate 21 Blood Pressure [Left Arm] 129/77 Blood Pressure Mean [Left Arm] 94 Blood Pressure Source [Left Arm] Automatic Cuff Blood Pressure Position [Left Arm] Sitting 02 Sat by Pulse Oximetry 96 Oxygen Delivery Method Room Air
[2024-10-24] MEDS: IPRATROPIUM/ALBUTEROL 3 ML NEB IH (19:07)
[2024-10-24 19:21] VITALS: BP 129/77; PULSE 70; RESP 21; TEMP 36.8; O2SAT 96
[2024-10-24] MEDS: predniSONE 20MG TAB 20 MG PO (19:27)
[2024-10-24] MEDS: AZITHROMYCIN 250MG TABLET 500 MG PO (19:27)
== END 2024-10-24 19:27 | disposition home or self-care (01) ==
PROVIDERS: Emergency Provider Nurse Practitioner
DX: J20.9 Acute bronchitis, unspecified (principal); J01.90 Acute sinusitis, unspecified; R05.9 Cough, unspecified; R09.89 Other specified symptoms and signs involving the circulatory and respiratory systems
CPT/HCPCS: 99212; G0381; J7620

== ENCOUNTER 2024-12-03 14:12 | Emergency (ER) | payer SELFPAY ==
[2024-12-03 14:43] VITALS: BP 177/68; PULSE 78; RESP 20; TEMP 36.1; O2SAT 93; BMI 31.2
--- NOTE | 2024-12-03 14:43 | XR_ITS ---
FINAL REPORT TECHNIQUE: Chest PA & Lateral CLINICAL HISTORY: Nonspecific cough COMPARISON: 11/09/2021 FINDINGS: 2 views of the chest were performed. The heart size is normal. There is an unfolded aorta. There is pleural-parenchymal scarring at the left base. The right lung is clear. There are no pleural effusions. There is no pneumothorax. The bony thorax appears intact. IMPRESSION: No acute cardiopulmonary process, stable since prior exam. Reviewed, Interpreted and Dictated by Ludin Carrasco MD Transcribed by Magaly Ham Authenticated and [facility]
--- NOTE | 2024-12-03 14:54 | EXP.UTC ---
Discharge Plan Disposition Patient Disposition: Home, Self-Care Condition: Good Prescriptions Prescriptions: New amoxicillin 875 mg tablet 875 mg PO Q12H Qty: 20 0RF benzonatate 100 mg capsule 100 mg PO TIDP PRN (Reason: Cough) Qty: 30 0RF methylprednisolone 4 mg Tablets,Dose Pack 4 mg PO DIRECTED 6 Days Qty: 21 0RF Rx Instructions: Take 1 pack as directed for 6 days ipratropium-albuterol 0.5 mg-3 mg(2.5 mg base)/3 mL solution for nebulization 3 ml inhalation Q6H PRN (Reason: wheezing) Qty: 90 0RF Referrals Follow up/Referrals: Provider,Referral, MD [Primary Care Provider] - See instructions Activity Restrictions/Add. Instructions Additional Instructions/Restrictions: Drink plenty of fluids. Take tylenol for pain or fever. Take the medications as directed. Follow up with your regular doctor. GO TO THE ER FOR ANY WORSENING SYMPTOMS Clinical Impressions Clinical Impression: Pharyngitis, Sinusitis, Asthma exacerbation Instructions Patient Instructions: DI for Asthma -- Adult, Albuterol and Ipratropium Oral Inhalation, Methylprednisolone Print Language Print Language: Tongan Discharge ED Provider: Hugo Currie [facility] General Stated complaint: chest congestion Mode of Arrival: Ambulatory Source of Information: Patient Time Seen by Provider: 12/03/24 14:48 Description of Symptoms (Recalled from Triage Doc. by RN): CHEST CONGESTION, COUGH, LOTS OF DRAINAGE, CAN NOT SLEEP OR LAY DOWN FLAT, DENIES FEVER HEENT Symptoms (Recalled from RN notes): Yes Resp Symptoms (Recalled from RN notes): Yes Skin Symptoms (Recalled from RN notes): No MS Symptoms (Recalled from RN notes): No Functional Status (Recalled from RN notes): WNL History of Present Illness Provider Complaint: He states that for the past 5 days he has had worsening chest congestion, productive cough and sinus congestion. Related Data Previous Rx's ?Medication ?Instructions ?Recorded amoxicillin 875 mg tablet 875 mg PO Q12H #20 tabs 12/03/24 benzonatate 100 mg capsule 100 mg PO TIDP PRN Cough #30 caps 12/03/24 ipratropium 0.5 mg-albuterol 3 mg 3 ml inhalation Q6H PRN wheezing 12/03/24 (2.5 mg base)/3 mL nebulization #90 mL soln methylprednisolone 4 mg tablets in 4 mg PO DIRECTED 6 days #21 tabs 12/03/24 a dose pack Allergies Allergy/AdvReac Type Severity Reaction Status Date / Time ibuprofen Allergy Verified 06/23/22 11:06 Worker's Comp Is this a Worker's Comp case?: No [facility] Disclaimer: The information contained in this section may have been updated after the patient was seen, as this information can be updated by other users. Medical History (Updated 12/03/24 @ 15:29 by Hugo Currie APRN) No significant past medical history Social History (System 06/23/22 @ 11:06 by Micah Paris) Smoking Status: Never smoker alcohol intake: never current occupational status: other Travel in the last 8 weeks: None Have you lived/traveled outside US in past 30 days?: No Contact w/someone who lives/traveled outside US past 30 days?: No Exposure to someone with infectious disease in past 14 days?: No Do you have a fever (greater than 100.4 F or 38 C)?: No Have you tested positive for COVID-19: No Exposed to someone with COVID-19 in past 14 days?: No Do you have a sore throat?: No Do you have a cough?: No Do you have any weakness?: No Do you have any diarrhea?: No Are you experiencing any unusual bleeding?: No Do you have any muscle aches/pain?: No Do you have any abdominal pain?: No Are you experiencing loss of taste or smell?: No ROS Obtained: Yes All systems reviewed & no additional complaints except as documented Constitutional Constitutional: Reports poor appetite Eyes Eyes: Reports system reviewed and no additional complaints, except as documented ENT Ears, Nose, Mouth, and Throat: Reports as per HPI Cardiovascular Cardiovascular: Reports system reviewed and no additional complaints, except as documented and Denies chest pain Respiratory Respiratory: Denies shortness of breath, Reports chest congestion, Reports cough, Denies stridor and Denies wheezing Gastrointestinal Gastrointestingal: Reports system reviewed and no additional complaints, except as documented; Denies abdominal pain, diarrhea or vomiting Musculoskeletal Musculoskeletal: Reports system reviewed and no additional complaints, except as documented and Denies arthralgias Integumentary/Breasts Skin/Breast: Reports system reviewed and no additional complaints, except as documented and Denies rash Neurologic Neurologic: Denies paresthesias Allergic/Immunologic Allergic/Immunologic: Denies wheezing Physical Exam General General appearance: alert and in no apparent distress Eye Eye exam: Present normal appearance, PERRL and EOMI ENT ENT exam: Present mucous membranes moist and normal external ear exam Expanded ENT Exam External ear exam: Present normal external inspection TM/Canal exam: Bilateral TM: erythema and bulging Nose exam: Absent sinus tenderness Nasal speculum exam: Bilateral: normal Mouth exam: Present normal external inspection; Absent drooling Teeth exam: Present normal inspection Throat exam: Present tonsillar erythema and tonsillomegaly Neck Neck exam: Present normal inspection, full ROM and trachea midline; Absent tenderness, lymphadenopathy or thyromegaly Chest Chest inspection: Present normal inspection and symmetric chest wall rise; Absent tenderness or rash Respiratory Respiratory exam: Present normal lung sounds bilaterally; Absent respiratory distress, wheezes, stridor or accessory muscle use Cardiovascular Cardiovascular exam: Present regular rate, normal rhythm and normal heart sounds Abdominal Exam Abdominal exam: Present soft; Absent distention, tenderness, guarding, rebound or rigidity Extremities Exam Extremities exam: Present normal inspection, full ROM and normal capillary refill; Absent tenderness or calf tenderness Back Exam Back exam: Present normal inspection and full ROM; Absent tenderness Neurological Exam Neurological exam: Present alert and oriented X3 Psychiatric Psychiatric exam: Present normal affect and normal mood Skin Skin exam: Present warm, dry, intact and normal color Lymphatic Lymphatic Findings: no adenopathy Medical Decision Making Medical Records Medical records reviewed: No I reviewed the patient's medical records. Screening: Per USPSTF and CDC recommendations, given the prevalence of disease in our region, it is our hospital?s policy to screen for HIV and viral Hepatitis for all patients aged 18 and over and those with ongoing risk factors. Camilo Inquiry Pt receiving controlled substance: No Vital Signs: 12/03/24 14:43 Temperature 97.0 F L Temperature Source Oral Pulse Rate [Left Radial] 78 Respiratory Rate 20 Blood Pressure [Left Arm] 177/68 H Blood Pressure Mean [Left Arm] 104 02 Sat by Pulse Oximetry 93 L Orders (Tests/Meds): ORDERS Category Date Time Status Chest XR 2 view (NOT portable) [XR chest 2V] Stat Exams 12/03/24 14:43 Ordered Radiology Data #1: Image(s): Chest Image Reviewed: Yes I reviewed the patient's radiology image and Yes I have reviewed radiologist's interpretation Preliminary Findings: No Infiltrates Seen Accession No. : [id number] Patient Name / ID : Edward Pelayo / [id number] Exam Date : 12/03/2024 14:41:35 ( Final ) Study Comment : Sex / Age : M / 73Y Creator : FRANCISCO CARRASCO Dictator : Emergency Medical Technician Basic : Residential Insurance Inspector : FRANCISCO CARRASCO Approver2 : Report Date : 12/03/2024 16:16:44 My Comment : FINAL REPORT TECHNIQUE: Chest PA & Lateral CLINICAL HISTORY: Nonspecific cough COMPARISON: 11/09/2021 FINDINGS: 2 views of the chest were performed. The heart size is normal. There is an unfolded aorta. There is pleural-parenchymal scarring at the left base. The right lung is clear. There are no pleural effusions. There is no pneumothorax. The bony thorax appears intact. IMPRESSION: No acute cardiopulmonary process, stable since prior exam. Reviewed, Interpreted and Dictated by Francisco Carrasco MD Transcribed by Magaly Ham Authenticated and [facility]
[2024-12-03 15:32] VITALS: BP 177/68; PULSE 78; RESP 20; TEMP 36.1
== END 2024-12-03 15:35 | disposition home or self-care (01) ==
PROVIDERS: Emergency Provider Nurse Practitioner Family
DX: J45.909 Unspecified asthma, uncomplicated (principal); J02.9 Acute pharyngitis, unspecified; J01.90 Acute sinusitis, unspecified
CPT/HCPCS: 71046; 99213; G0381

== ENCOUNTER 2025-09-14 15:02 | Emergency (ER) | payer SELFPAY ==
[2025-09-14 15:04] VITALS: BP 161/85; PULSE 100; RESP 18; TEMP 37.2; O2SAT 93; BMI 33.3
--- NOTE | 2025-09-14 15:25 | XR_ITS ---
FINAL REPORT TECHNIQUE: Single view chest CLINICAL HISTORY: SOA COMPARISON: 12/03/2024 FINDINGS: A single view of the chest was obtained. The heart and mediastinum are within normal limits. There is left lower lobe scarring and mild left basilar scarring. Lungs are otherwise clear. There is no pneumothorax. IMPRESSION: No acute cardiopulmonary process. Reviewed, Interpreted and Dictated by Brien Mckee MD Transcribed by Shelly Masters Authenticated and [facility]
--- NOTE | 2025-09-14 15:27 | ED_ITS ---
Discharge Plan Disposition Patient Disposition: Home, Self-Care Prescriptions Prescriptions: New albuterol sulfate 2.5 mg/0.5 mL solution for nebulization 2.5 mg inhalation Q6H PRN (Reason: bronchospasm) Qty: 30 0RF albuterol sulfate [Ventolin HFA] 90 mcg/actuation HFA aerosol inhaler 2 inh inhalation Q6H PRN (Reason: shortness of breath or wheezing) Qty: 8.5 0RF prednisone 20 mg tablet 40 mg PO DAILY 4 Days Qty: 8 0RF Rx Instructions: Start this medication on 09/15/2025. Take 40 mg daily for 4 days. No Action ipratropium-albuterol 0.5 mg-3 mg(2.5 mg base)/3 mL solution for nebulization 3 ml inhalation Q6H PRN (Reason: wheezing) Qty: 90 0RF azithromycin 250 mg tablet See Rx Instructions PO .COMPLEX Qty: 6 0RF Rx Instructions: For 250 mg dose pack: take 500 mg today (day 1), then 250 mg for 4 days (days 2-5) PO prednisone 20 mg tablet 20 mg PO BID Qty: 10 0RF benzonatate 100 mg capsule 100 mg PO TID PRN (Reason: cough) Qty: 30 0RF guaifenesin [Mucinex] 1,200 mg tablet extended release 12hr 1,200 mg PO BID Qty: 20 0RF Referrals Follow up/Referrals: Provider,Referral, MD [Primary Care Provider, Medical] - See instructions Activity Restrictions/Add. Instructions Additional Instructions/Restrictions: You have been seen and evaluated in the emergency department. I recommend you use some form of albuterol every 4-6 hours over the next 2 to 3 days. Start steroids as prescribed on 09/15/2025. Return to the emergency department if your symptoms worsen. I strongly recommend you establish care with a primary care physician. Clinical Impressions Clinical Impression: Bilateral wheezing Instructions Patient Instructions: Cough Print Language Print Language: Egyptian Discharge ED Provider: Mary Dacosta Adult HPI General Chief complaint: Cough Stated complaint: Congestion Time Seen by Provider: 09/14/25 15:13 Mode of Arrival: Ambulatory Source of Information: Patient Description of Symptoms (Recalled from ER Triage Doc. by RN): PT friend states he has been congested in his chest for a while now unsure about exact timeline. Pt does have an albuterol inhaler, but is almost out per pt friend. Pt is amharic speaking, friend at bedside does not speak amharic. History of Present Illness HPI narrative: This is 74-year-old Egyptian-speaking male who reports possible past medical history of asthma or COPD presenting the emergency department with a friend for shortness of breath, progressive over the past few years . A electronic compounding assistant was utilized for history taking. Patient complains of progressive dyspnea with wheezing and worsening orthopnea. Denies any associated chest pain, fever, back pain, abdominal pain, or lower extremity edema. He does not have a primary care physician and is uninsured. He reports previous diagnosis of pneumonia multiple years ago. Not currently on any antibiotics. Related Data Previous Rx's ?Medication ?Instructions ?Recorded azithromycin 250 mg tablet See Rx Instructions PO .COM PLEX #6 08/20/25 tabs benzonatate 100 mg capsule 100 mg PO TID PRN cough #30 caps 08/20/25 guaifenesin 1,200 mg tablet, 1,200 mg PO BID #20 tabs 08/20/25 extended release 12 hr (Mucinex) ipratropium 0.5 mg-albuterol 3 mg 3 ml inhalation Q6H PRN wheezing 08/20/25 (2.5 mg base)/3 mL nebulization #90 mL soln prednisone 20 mg tablet 20 mg PO BID #10 tabs albuterol sulfate 2.5 mg/0.5 mL 2.5 mg (0.5 mL) inhala tion Q6H PRN 09/14/25 solution for nebulization bronchospasm #30 ea albuterol sulfate 90 mcg/actuation 2 inh inhalation Q6 H PRN shortness 09/14/25 aerosol inhaler (Ventolin HFA) of breath or wheezing # 8.5 grams prednisone 20 mg tablet 40 mg (2 x 20 mg) PO DAILY 4 days 09/14/25 #8 tabs Allergies Allergy/AdvReac Type Severity Reaction Status Date / Time ibuprofen Allergy Unknown Verified 08/20/25 11:51 allergy reaction [facility] Disclaimer: The information contained in this section may have been updated after the patient was seen, as this information can be updated by other users. Medical History No significant past medical history Social History Smoking Status: Never smoker alcohol intake: never current occupational status: other Travel in the last 8 weeks?: None Have you lived/traveled outside US in past 30 days?: No Contact w/someone who lives/traveled outside US past 30 days?: No Exposure to someone with infectious disease in past 14 days?: No Do you have a fever (greater than 100.4 F or 38 C)?: No Have you tested positive for COVID-19?: No Exposed to someone with COVID-19 in past 14 days?: No Do you have a sore throat?: No Do you have a cough?: No Do you have any weakness?: No Do you have any diarrhea?: No Are you experiencing any unusual bleeding?: No Do you have any muscle aches/pain?: No Do you have any abdominal pain?: No Are you experiencing loss of taste or smell?: No Other Medical History Have you received the Flu Vaccine for this season: Yes Have you received the Pneumonia Vaccine: Yes ROS Obtained: Yes All systems reviewed & no additional complaints except as documented Physical Exam General General appearance: alert and in no apparent distress Head Head exam: atraumatic Eye Eye exam: Present normal appearance, PERRL and EOMI ENT ENT exam: Present mucous membranes moist Neck Neck exam: Present normal inspection and full ROM; Absent tenderness Chest Chest inspection: Present symmetric chest wall rise; Absent tenderness Respiratory Respiratory exam: Present wheezes (Wheezing present diffusely, primarily in expiratory phase, air movement is maintained); Absent respiratory distress or accessory muscle use Cardiovascular Cardiovascular exam: Present regular rate and normal rhythm Abdominal Exam Abdominal exam: Present soft; Absent tenderness or guarding Extremities Exam Extremities exam: Present full ROM; Absent tenderness Neurological Exam Neurological exam: Present alert and oriented X3 Psychiatric Psychiatric exam: Present normal affect Skin Skin exam: Present warm and dry Medical Decision Making Medical Records Screening: Per USPSTF and CDC recommendations, given the prevalence of disease in our region, it is our hospital?s policy to screen for HIV and viral Hepatitis for all patients aged 18 and over and those with ongoing risk factors. Camilo Inquiry Pt receiving controlled substance: No Camilo was queried for this patient: No Vital Signs: 09/14/25 15:04 Temperature 98.9 F Temperature Source Temporal Artery Scan Pulse Rate [Right] 100 H Respiratory Rate 18 Blood Pressure [Right Arm] 161/85 H Blood Pressure Mean [Right Arm] 110 Blood Pressure Source [Right Arm] Automatic Cuff Blood Pressure Position [Right Arm] Sitting 02 Sat by Pulse Oximetry 93 L Oxygen Delivery Method Room Air Lab Data Lab Results 09/14/25 15:40: WBC 6.7, RBC 4.97, Hgb 14.5, Hct 41.3 L, MCV 83.1, MCH 29.2, MCHC 35.1, RDW 13.3, Plt Count 208, MPV 10.2, Neut % (Auto) 66.5, Lymph % (Auto) 17.7, Haakon % (Auto) 6.8, Eos % (Auto) 7.7, Baso % (Auto) 1.1, Neut # (Auto) 4.4, Lymph # (Auto) 1.2, Haakon # (Auto) 0.5, Eos # (Auto) 0.5 H, Baso # (Auto) 0.1, V BG pH 7.44 H, VBG pCO2 42.0, VBG pO2 134.3 H, VBG HCO3 28.0, VBG Total CO2 29.3 H, VBG O2 Saturation 98.9 H, VBG Base Excess 3.9 H, VBG Lactic Acid 1.8, Sodium 137, Potassium 3.7, Chloride 103, Carbon Dioxide 30, Anion Gap 7.7, BUN 20, Creatinine 0.80, Estimated Creat Clear 86, Estimated GFR 95, Est GFR ( Amer) 115, Glucose 128 H, Calcium 9.5, Total Bilirubin 0.8, AST 41, ALT 31, Alkaline Phosphatase 83, Total Protein 7.3, Albumin 4.2, Globulin 3.1, Albumin/Globulin Ratio 1.4 09/14/25 15:40 09/14/25 15:40 Orders (Tests/Meds): ED MEDICATIONS Discontinued Medications Generic Name Dose Route Start Last Admin Trade Name Freq PRN Reason Stop Dose Admin Albuterol/Ipratropium 9 ml 09/14/25 15:24 09/14/25 15:42 Ipratropium/Albuterol 3 Ml Neb IH 09/14/25 15:25 9 ml ONCE ONE Administration Dexamethasone 10 mg 09/14/25 15:24 09/14/25 15:41 Dexamethasone 4mg Tablet PO 09/14/25 15:25 10 mg ONCE ONE Administration ORDERS Category Date Time Status Chest XR -- portable [XR chest portable] Stat Exams 09/14/25 15:25 Completed CBC w/Auto Diff [Complete Blood Count Auto Diff] Stat Lab 09/14/25 15:40 Completed CMP [Comprehensive Metabolic Panel] Stat Lab 09/14/25 15:40 Completed VBG [Venous Blood Gas] Stat RT 09/14/25 15:40 Completed ECG Data Tracing #1: I reviewed this ECG and interpreted as documented below: EKG shows normal sinus rhythm at a rate of 84. Normal TN, QRS, and QTc intervals. Left axis. No acute ST elevations or signs of acute subendocardial or transmural ischemia. Medical Decision Narrative: In summary, this is a 74y/o male with essentially undifferentiated past medical history presenting the emergency department for progressive dyspnea over the past 2 to 3 years. Differential diagnosis includes but is not limited to: COPD exacerbation, pneumonia, asthma exacerbation, pulmonary malignancy On my initial assessment, the patient is hemodynamically stable in no acute distress. Physical exam is notable for wheezing diffusely in all lung willis, primarily in the expiratory phase. Air movement is maintained. Initial workup will be focused on treating for asthma versus COPD exacerbation, obtaining EKG in order to rule out ACS, and giving 3 DuoNebs with 1 dose of oral Decadron. ECG personally interpreted as documented above. No acute ischemic changes Labs personally interpreted which demonstrate no leukocytosis or anemia on CBC. Platelet count within normal limits. VBG shows a mild alkalosis. No hypercarbia. Normal lactate. CMP shows no severe electrolyte abnormalities. No FORREST. LFTs grossly normal.. XR personally interpreted which demonstrate shows no acute findings on my read. Specifically, no pneumothorax, trachea is midline, no subcutaneous emphysema, no pleural effusion, no cardiomegaly, no mass, no obvious bony abnormalities.. On reassessment, wheezing is markedly improved. Patient still has a subtle expiratory wheeze in the right lower lung willis, however his overall clinical condition is improved. He is saturating at 93% on room air on my exam. He has improved work of breathing. I discussed my concern for potential asthma versus COPD diagnosis and recommended primary care follow-up. He will likely need pulmonary function testing and close follow-up. Low clinical concern for superimposed infectious process at this point in time considering the chronicity of his symptoms. Will discharge with albuterol inhaler, albuterol nebulizer solution and 4 additional days of oral prednisone to start tomorrow. I recommended 2 days off work and to return to the emergency department if symptoms worsen. I also recommended he administer some form of albuterol, either via nebulizer or inhaler, every 4-6 hours over the next 2 to 3 days. All questions were answered. Instructions were given with electronic industrial electrician journeyman. Critical Care Critical Care Time Critical Care Time: No
[2025-09-14] MEDS: DEXAMETHASONE 4MG TABLET 10 MG PO (15:41)
[2025-09-14] MEDS: IPRATROPIUM/ALBUTEROL 3 ML NEB 9 ML IH (15:42)
[2025-09-14 15:54] LABS: Hematocrit 41.3 % (42.0-52.0); Hemoglobin 14.5 g/dL (14.1-18.0); Immature Granulocytes % 0.2 %; Mean Corpuscular HGB Conc 35.1 g/dL (31.8-35.4); Mean Corpuscular Hemoglobin 29.2 pg (27.0-31.2); Mean Corpuscular Volume 83.1 fl (80-94); Nucleated Red Blood Cells % 0 %; Platelet Count 208 K/mm3 (142-424); Red Blood Count 4.97 M/mm3 (4.60-6.20); Red Cell Distribution Width-SD 40.3 fL; White Blood Count 6.7 K/mm3 (4.8-10.8)
[2025-09-14 15:55] LABS: Lactate Venous 1.8 mmol/L (0.4-2.0); VBG HCO3 28.0 mmol/L (23-30); VBG PCO2 42.0 mmol/L (35-51); VBG PH 7.44 mmol/L (7.31-7.41); VBG PO2 134.3 mmol/L (28-40)
[2025-09-14 16:03] LABS: Alanine Aminotransferase 31 U/L (12-78); Albumin Level 4.2 g/dl (3.5-5.0); Albumin/Globulin Ratio 1.4 (1.1-1.8); Alkaline Phosphatase 83 U/L (38-126); Anion Gap 7.7 mEq/L (5-15); Aspartate Amino Transferase 41 U/L (17-59); Bilirubin,Total 0.8 mg/dl (0.2-1.3); Blood Urea Nitrogen 20 mg/dl (9-20); Calcium 9.5 mg/dl (8.4-10.2); Carbon Dioxide 30 mmol/L (22.0-30.0); Chloride 103 mmol/L (98-107); Creatinine Clearance Estimated 86 mL/min (50-200); Creatinine,Serum 0.80 mg/dl (0.66-1.25); Estimated Glomerular Filt Rate 95 ml/min (>60); GFR (African American) 115 ML/MIN (>60); Globulin 3.1 g/dL (1.3-3.2); Glucose 128 mg/dl (74-100); Potassium 3.7 mmoL/L (3.5-5.1); Sodium 137 mmol/L (136-145); Total Protein,Serum 7.3 g/dl (6.3-8.2)
--- NOTE | 2025-09-14 16:09 | ECG_ITS ---
APPROVED REPORT Exam: Resting ECG HR:84 bpm ECG Measurements Heart Rate 84 AXES NE 164 P 49 QRSd 89 QRS -55 QT 390 T 36 QTc 431 Conclusion SINUS RHYTHM PATTERN CONSISTENT WITH PULMONARY DISEASE LEFT ANTERIOR FASCICULAR BLOCK [QRS AXIS <= -45, QR IN I, RS IN II] MINIMAL VOLTAGE CRITERIA FOR LVH, CONSIDER NORMAL VARIANT [MEETS CRITERIA IN ONE OF: R(aVL), S(V1), R(V5), R(V5/V6)+S(V1)] ABNORMAL ECG UNCONFIRMED REPORT Electronically signed by : HEATHER GOODMAN, 09/15/2025 05:22:30
[2025-09-14 16:48] VITALS: BP 151/95; PULSE 84; RESP 16; TEMP 36.9; O2SAT 92
== END 2025-09-14 17:01 | disposition home or self-care (01) ==
PROVIDERS: Emergency Provider Student in an Organized Health Care Education/Training Program
DX: R06.02 Shortness of breath (principal); R06.2 Wheezing
CPT/HCPCS: 71045; 80053; 82803; 85025; 93005; 99283; J8540

== ENCOUNTER 2025-09-30 12:36 | Emergency (ER) | payer SELFPAY ==
[2025-09-30 12:49] VITALS: BP 156/86; PULSE 80; RESP 18; TEMP 36.8; O2SAT 93; BMI 30.2
--- NOTE | 2025-09-30 13:02 | XR_ITS ---
FINAL REPORT CLINICAL HISTORY: Shortness of breath; wheezing COMPARISON: 09/14/2025 FINDINGS: PA and lateral views of the chest were obtained. The cardiac and mediastinal silhouettes are within normal limits. Underlying emphysema is noted. Linear opacities in the lingula are likely scar and are unchanged. No new infiltrate.. There is no pleural effusion or pneumothorax. No acute osseous abnormality is identified. IMPRESSION: No radiographic evidence of acute cardiac or pulmonary disease. Stable chronic changes. Reviewed, Interpreted and Dictated by Kym Pak MD Transcribed by Kailee Lewis Authenticated and [facility]
--- NOTE | 2025-09-30 13:12 | ED_ITS ---
<Statement entered by Madeline Christian DO - 09/30/25 17:21> I was consulted by the CARMEN, and we discussed the complexity of problems being addressed. I approve the treatment and management plan for this patient's care in the emergency department, thus performing a substantial portion of the medical decision making. Madeline Christian DO Discharge Plan Disposition Patient Disposition: Home, Self-Care Condition: Good Prescriptions Prescriptions: New benzonatate 200 mg capsule 200 mg PO TID PRN (Reason: cough) Qty: 30 0RF ipratropium-albuterol 0.5 mg-3 mg(2.5 mg base)/3 mL solution for nebulization 3 ml inhalation Q6H PRN (Reason: wheezing) Qty: 90 0RF guaifenesin 1,200 mg tablet extended release 12hr 1,200 mg PO BID PRN (Reason: cough) Qty: 30 0RF No Action ipratropium-albuterol 0.5 mg-3 mg(2.5 mg base)/3 mL solution for nebulization 3 ml inhalation Q6H PRN (Reason: wheezing) Qty: 90 0RF azithromycin 250 mg tablet See Rx Instructions PO .COMPLEX Qty: 6 0RF Rx Instructions: For 250 mg dose pack: take 500 mg today (day 1), then 250 mg for 4 days (days 2-5) PO prednisone 20 mg tablet 20 mg PO BID Qty: 10 0RF benzonatate 100 mg capsule 100 mg PO TID PRN (Reason: cough) Qty: 30 0RF guaifenesin [Mucinex] 1,200 mg tablet extended release 12hr 1,200 mg PO BID Qty: 20 0RF albuterol sulfate 2.5 mg/0.5 mL solution for nebulization 2.5 mg inhalation Q6H PRN (Reason: bronchospasm) Qty: 30 0RF albuterol sulfate [Ventolin HFA] 90 mcg/actuation HFA aerosol inhaler 2 inh inhalation Q6H PRN (Reason: shortness of breath or wheezing) Qty: 8.5 0RF prednisone 20 mg tablet 40 mg PO DAILY 4 Days Qty: 8 0RF Rx Instructions: Start this medication on 09/15/2025. Take 40 mg daily for 4 days. Referrals Follow up/Referrals: Provider,Referral, MD [Primary Care Provider, Medical] - See instructions Activity Restrictions/Add. Instructions Additional Instructions/Restrictions: Hoy lo atendieron en urgencias por s?ntomas de bronquitis cr?bekah. Se enviaron a [facility] farm[facility] las recetas de medicamentos para la mucosidad, la tos y tratamientos respiratorios. Es importante que reciba atenci?n primaria con regularidad. [facility] le ayudar? a obtener resurtidos de estos medicamentos sin necesidad de acudir a urgencias. Regrese a urgencias si presenta dificultad para respirar, dolor en el pecho o cualquier otra emergencia m?dica. You were seen today in the emergency department for chronic bronchitis symptoms. Prescriptions for the mucus medicine, the cough medicine, and breathing treatments were sent to your pharmacy. It is important that you obtain a regular primary care. This will help you to be able to get refills of these medicines without needing to come to the emergency department. Return to the emergency department if you have shortness of breath, chest pain or any other medical emergency. Clinical Impressions Clinical Impression: Bronchitis, Bilateral wheezing Asthma Qualifiers: Asthma severity: unspecified severity Asthma persistence: unspecified Asthma complication type: unspecified Qualified Code(s): J45.909 - Unspecified asthma, uncomplicated Instructions Patient Instructions: Acute Bronchitis, Asthma in Adults, DI for Chronic Bronchitis Print Language Print Language: Macedonian Discharge ED Provider: Madeline Christian Adult HPI General Chief complaint: Shortness of Breath/Dyspnea Stated complaint: congestion, cough Time Seen by Provider: 09/30/25 12:48 Mode of Arrival: Ambulatory Source of Information: Patient Description of Symptoms (Recalled from ER Triage Doc. by RN): By using director telemetry patient reports phlem that is getting stuck in his throat off and on for years now. States that he has an inhaler that does not work. History of Present Illness HPI narrative: HPI obtained via director telemetry carmen; patient is Macedonian-speaking only. Patient is a pleasant 74-year-old male who presents to the emergency department with complaints of difficulty breathing because of phlegm in his throat. Patient states that this originally began 7 or 8 years ago after cleaning out melo and has been consistent before worsening recently. Patient states that the constant phlegm and sore throat is making it difficult to get a full breath. Patient is a poor historian and cannot endorse or deny histories of COPD, hypertension, asthma, or cardiac disease. Patient denies any recent fever and denies any chest pain, abdominal pain, nausea, vomiting, diarrhea. Onset (ago): year(s) Related Data Previous Rx's ?Medication ?Instructions ?Recorded azithromycin 250 mg tablet See Rx Instructions PO .COM PLEX #6 08/20/25 tabs benzonatate 100 mg capsule 100 mg PO TID PRN cough #30 caps 08/20/25 guaifenesin 1,200 mg tablet, 1,200 mg PO BID #20 tabs 08/20/25 extended release 12 hr (Mucinex) ipratropium 0.5 mg-albuterol 3 mg 3 ml inhalation Q6H PRN wheezing 08/20/25 (2.5 mg base)/3 mL nebulization #90 mL soln prednisone 20 mg tablet 20 mg PO BID #10 tabs albuterol sulfate 2.5 mg/0.5 mL 2.5 mg (0.5 mL) inhala tion Q6H PRN 09/14/25 solution for nebulization bronchospasm #30 ea albuterol sulfate 90 mcg/actuation 2 inh inhalation Q6 H PRN shortness 09/14/25 aerosol inhaler (Ventolin HFA) of breath or wheezing # 8.5 grams prednisone 20 mg tablet 40 mg (2 x 20 mg) PO DAILY 4 days 09/14/25 #8 tabs benzonatate 200 mg capsule 200 mg PO TID PRN cough #30 caps 09/30/25 guaifenesin 1,200 mg tablet, 1,200 mg PO BID PRN cough #30 tabs 09/30/25 extended release 12 hr ipratropium 0.5 mg-albuterol 3 mg 3 ml inhalation Q6H PRN wheezing 09/30/25 (2.5 mg base)/3 mL nebulization #90 mL soln Allergies Allergy/AdvReac Type Severity Reaction Status Date / Time ibuprofen Allergy Unknown Verified 08/20/25 11:51 allergy reaction [facility] Disclaimer: The information contained in this section may have been updated after the patient was seen, as this information can be updated by other users. Medical History No significant past medical history Social History Smoking Status: Never smoker alcohol intake: never current occupational status: other Travel in the last 8 weeks?: None Have you lived/traveled outside US in past 30 days?: No Contact w/someone who lives/traveled outside US past 30 days?: No Exposure to someone with infectious disease in past 14 days?: No Do you have a fever (greater than 100.4 F or 38 C)?: No Have you tested positive for COVID-19?: No Exposed to someone with COVID-19 in past 14 days?: No Do you have a sore throat?: No Do you have a cough?: Yes Do you have any weakness?: No Do you have any diarrhea?: No Are you experiencing any unusual bleeding?: No Do you have any muscle aches/pain?: No Do you have any abdominal pain?: No Are you experiencing loss of taste or smell?: No Other Medical History Have you received the Flu Vaccine for this season: Yes Have you received the Pneumonia Vaccine: Yes ROS Obtained: Yes Systems reviewed as appropriate & no additional complaints except as documented Physical Exam General General appearance: alert and in no apparent distress Head Head exam: atraumatic and normocephalic Eye Eye exam: Present normal appearance and PERRL ENT ENT exam: Present normal oropharynx and mucous membranes moist Neck Neck exam: Present normal inspection, full ROM and trachea midline Chest Chest inspection: Present normal inspection and symmetric chest wall rise Respiratory Respiratory exam: Present wheezes; Absent respiratory distress, stridor or accessory muscle use Cardiovascular Cardiovascular exam: Present regular rate, normal rhythm and normal heart sounds Abdominal Exam Abdominal exam: Present soft and normal bowel sounds; Absent distention, tenderness, guarding or rigidity Back Exam Back exam: Present normal inspection Neurological Exam Neurological exam: Present alert and oriented X3 Psychiatric Psychiatric exam: Present normal affect and normal mood Skin Skin exam: Present warm and dry Medical Decision Making Medical Records Screening: Per USPSTF and CDC recommendations, given the prevalence of disease in our region, it is our hospital?s policy to screen for HIV and viral Hepatitis for all patients aged 18 and over and those with ongoing risk factors. Camilo Inquiry Pt receiving controlled substance: No Vital Signs: 09/30/25 12:49 09/30/25 13:30 09/30/25 14:00 Temperature 98.2 F Temperature Source Oral Pulse Rate 77 75 Pulse Rate [Radial] 80 Respiratory Rate 18 Blood Pressure 155/87 H 145/73 H Blood Pressure [Right Arm] 156/86 H Blood Pressure Mean Blood Pressure Mean [Right Arm] 109 Blood Pressure Source Blood Pressure Source [Right Arm] Automatic Cuff Blood Pressure Position Blood Pressure Position [Right Arm] Sitting 02 Sat by Pulse Oximetry 93 L 98 98 Oxygen Delivery Method Room Air 09/30/25 14:30 09/30/25 15:01 09/30/25 16:00 Temperature 98.0 F Temperature Source Oral Pulse Rate 69 72 81 Pulse Rate [Radial] Respiratory Rate 18 Blood Pressure 155/77 H 174/97 H 183/103 H Blood Pressure [Right Arm] Blood Pressure Mean 103 118 Blood Pressure Mean [Right Arm] Blood Pressure Source Automatic Cuff Blood Pressure Source [Right Arm] Blood Pressure Position Sitting Blood Pressure Position [Right Arm] 02 Sat by Pulse Oximetry 94 L 93 L Oxygen Delivery Method Room Air Lab Data Lab Results 09/30/25 13:16: WBC 5.4, RBC 5.18, Hgb 14.7, Hct 43.7, MCV 84.4, MCH 28.4, MCHC 33.6, RDW 13.6, Plt Count 199, MPV 10.4, Neut % (Auto) 55.5, Lymph % (Auto) 23.5, [place] % (Auto) 8.3, Eos % (Auto) 11.8, Baso % (Auto) 0.9, Neut # (Auto) 3.0, Lymph # (Auto) 1.3, [place] # (Auto) 0.5, Eos # (Auto) 0.6 H, Baso # (Auto) 0.1, Sodium 143, Potassium 3.6, Chloride 105, Carbon Dioxide 30, Anion Gap 11.6, BUN 20, Creatinine 1.00, Estimated Creat Clear 71, Estimated GFR 73, Est GFR ( Amer) 89, Glucose 126 H, Calcium 8.8, Total Bilirubin 0.9, AST 32, ALT 26, Alkaline Phosphatase 67, Troponin I < 0.01, Total Protein 6.7, Albumin 4.0, Globulin 2.7, Albumin/Globulin Ratio 1.5, Chlamy pneumoniae PCR Not detected, Adenovirus (PCR) Not detected, B. pertussis DNA (PCR) Not detected, Coronavirus OC43 (PCR) Not detected, Coronavirus HKU1 (PCR) Not detected, Coronavirus 229E (PCR) Not detected, SARS-CoV-2 (PCR) Not detected, Coronavirus NL63 (PCR) Not detected, Human Metapneumovir PCR Not detected, Influenza A (H1) PCR Not detected, Influ A (H1N1/09) PCR Not detected, Influenza A (H3) PCR Not detected, Influenza Type A (PCR) Not detected, Influenza Type B (PCR) Not detected, M. pneumoniae (PCR) Not detected, Parainfluenza 1 (PCR) Not detected, Parainfluenza 2 (PCR) Not detected, Parainfluenza 3 (PCR) Not detected, Parainfluenza 4 (PCR) Not detected, RSV (PCR) Not detected, Entero/Rhino (PCR) Not detected, Group A Strep Rapid Negative 09/30/25 14:53: Urine Color Yellow, Urine Appearance Clear, Urine pH 6.5, Ur Specific Lillie 1.020, Urine Protein Negative, Urine Glucose (UA) Negative, Urine Ketones Negative, Urine Blood Trace-i, Urine Nitrate Negative, Urine Bilirubin Negative, Urine Urobilinogen 0.2, Ur Leukocyte Esterase Negative, Urine RBC None, Urine WBC Occasional, Ur Squamous Epith Cells Occasional, Urine Bacteria Trace, Urine Mucus Trace 09/30/25 13:16 09/30/25 13:16 Orders (Tests/Meds): ED MEDICATIONS Discontinued Medications Generic Name Dose Route Start Last Admin Trade Name Freq PRN Reason Stop Dose Admin Albuterol/Ipratropium 3 ml 09/30/25 13:03 09/30/25 13:22 Ipratropium/Albuterol 3 Ml Neb IH 09/30/25 13:04 3 ml ONCE ONE Administration ORDERS Category Date Time Status CXR 2 view (NOT portable) [XR chest 2V] Stat Exams 09/30/25 13:02 Completed CBC w/Auto Diff [Complete Blood Count Auto Diff] Stat Lab 09/30/25 13:16 Completed CMP [Comprehensive Metabolic Panel] Stat Lab 09/30/25 13:16 Completed Full Resp Panel w/COVID ([facility]) Routine Lab 09/30/25 13:16 Completed Strep Scrn Group A (Rapid) Stat Lab 09/30/25 13:16 Completed Trop I [Troponin I] Stat Lab 09/30/25 13:16 Completed UA [Urinalysis and Microscopic] Stat Lab 09/30/25 14:53 Completed Strep Screen Confirmation Stat Micro 09/30/25 13:16 Received Medical Decision Narrative: In summary patient is an Macedonian-speaking 74-year-old male who presents to the emergency department for evaluation of symptoms of chronic bronchitis. Patient is hemodynamically stable upon arrival, afebrile. Mild wheezing is noted with auscultation of lungs but no other remarkable physical findings noted on exam. Differential diagnosis includes COPD, chronic bronchitis, COVID. Initial workup will be conducted with labs, chest x-ray, and respiratory panel. Initial interventions include IV fluids and breathing treatments during ED course. Initial workup reviewed by me was generally unremarkable with no significant changes to chest x-ray or labs from previous ED visits. Upon repeat evaluation patient states the breathing treatment has helped during his ED course. Given the findings during this ED visit and review of patient's previous ED visits, this patient is stable to discharge. Medications discussed with patient for mucous and cough suppression, as well as breathing treatments for home. Patient is strongly encouraged to obtain regular primary care. This was discussed with patient at bedside when the plan of care for him to be discharged was decided upon. Patient verbalized understanding of and is amenable to these plans. Return precautions were discussed and discharge instructions.. I informally interpreted the patient's chest x-ray as being unremarkable when compared to previous. Patient's social determinants of health review was remarkable for several items. Patient is unable to read and speaks no German, which complicates his search for a regular treatment of chronic medical conditions and his attempt to obtain a regular primary care physician. Critical Care Critical Care Time Critical Care Time: No
[2025-09-30] MEDS: IPRATROPIUM/ALBUTEROL 3 ML NEB IH (13:22)
[2025-09-30 13:23] LABS: Adenovirus,PCR Not Detected (NotDetected); Chlamydophila Pneumoniae, PCR Not Detected (NotDetected); Coronavirus 19, PCR Not Detected (NotDetected); Coronovirus HKU1,PCR Not Detected (NotDetected); Influenza A, PCR Not Detected (NotDetected); Influenza AH1, 2009 Not Detected (NotDetected); Influenza AH1, PCR Not Detected (NotDetected); Influenza AH3,PCR Not Detected (NotDetected); Influenza B, PCR Not Detected (NotDetected); Mycoplasma Pneumoniae, PCR Not Detected (NotDetected); Parainfluenza 1, PCR Not Detected (NotDetected); Parainfluenza 2, PCR Not Detected (NotDetected); Parainfluenza 3, PCR Not Detected (NotDetected); Parainfluenza 4, PCR Not Detected (NotDetected)
[2025-09-30 13:24] LABS: Hematocrit 43.7 % (42.0-52.0); Hemoglobin 14.7 g/dL (14.1-18.0); Immature Granulocytes % 0 %; Mean Corpuscular HGB Conc 33.6 g/dL (31.8-35.4); Mean Corpuscular Hemoglobin 28.4 pg (27.0-31.2); Mean Corpuscular Volume 84.4 fl (80-94); Nucleated Red Blood Cells % 0 %; Platelet Count 199 K/mm3 (142-424); Red Blood Count 5.18 M/mm3 (4.60-6.20); Red Cell Distribution Width-SD 42.2 fL; White Blood Count 5.4 K/mm3 (4.8-10.8)
[2025-09-30 13:30] VITALS: BP 155/87; PULSE 77; O2SAT 98
[2025-09-30 13:35] LABS: Strep Scrn Group A (Rapid) Negative (Negative)
[2025-09-30 13:38] LABS: Albumin Level 4.0 g/dl (3.5-5.0); Chloride 105 mmol/L (98-107); Potassium 3.6 mmoL/L (3.5-5.1); Sodium 143 mmol/L (136-145)
[2025-09-30 13:41] LABS: Alanine Aminotransferase 26 U/L (12-78); Albumin/Globulin Ratio 1.5 (1.1-1.8); Alkaline Phosphatase 67 U/L (38-126); Anion Gap 11.6 mEq/L (5-15); Aspartate Amino Transferase 32 U/L (17-59); Bilirubin,Total 0.9 mg/dl (0.2-1.3); Blood Urea Nitrogen 20 mg/dl (9-20); Calcium 8.8 mg/dl (8.4-10.2); Carbon Dioxide 30 mmol/L (22.0-30.0); Creatinine Clearance Estimated 71 mL/min (50-200); Creatinine,Serum 1.00 mg/dl (0.66-1.25); Estimated Glomerular Filt Rate 73 ml/min (>60); GFR (African American) 89 ML/MIN (>60); Globulin 2.7 g/dL (1.3-3.2); Glucose 126 mg/dl (74-100); Total Protein,Serum 6.7 g/dl (6.3-8.2)
[2025-09-30 13:54] LABS: Troponin I < 0.01 ng/ml (0.00-0.034)
[2025-09-30 14:00] VITALS: BP 145/73; PULSE 75; O2SAT 98
[2025-09-30 14:30] VITALS: BP 155/77; PULSE 69; O2SAT 94
[2025-09-30 14:59] LABS: Microscopic, Urine URINE MICROSCOPIC (MICROSCOPIC)
[2025-09-30 15:01] VITALS: BP 174/97; PULSE 72; O2SAT 93
[2025-09-30 15:03] LABS: Bilirubin,Urine Negative (Negative); Color,Urine YELLOW (Yellow); Glucose,Urine (UA) Negative (Negative); Ketones,Urine Negative (Negative); Leukocyte Esterase,Urine Negative (Negative); PH,Urine 6.5 (5.0-8.5); Protein,Urine Negative (Negative); Specific Gravity, Urine 1.020 (1.005-1.030); Urobilinogen,Urine 0.2 EU/dl (0.2)
[2025-09-30 15:11] LABS: Bacteria,Urine Trace /lpf; Mucus,Urine Trace /lpf; Squamous Epithelial Cell,Urine Occasional #/hpf (0-5); WBC,Urine Occasional #/hpf (0-3)
[2025-09-30 16:00] VITALS: BP 183/103; PULSE 81; RESP 18; TEMP 36.7; O2SAT 93
== END 2025-09-30 16:03 | disposition home or self-care (01) ==
PROVIDERS: Physician Assistant; Emergency Provider Student in an Organized Health Care Education/Training Program
DX: J20.9 Acute bronchitis, unspecified (principal); J45.909 Unspecified asthma, uncomplicated
CPT/HCPCS: 0223U; 71046; 80053; 81001; 84484; 85025; 87430; 99284

== ENCOUNTER 2025-09-30 19:46 | Emergency (ER) | payer SELFPAY ==
[2025-09-30] VITALS (28 sets, daily range): BP systolic 86–277; BP diastolic 50–149; PULSE 92–99; RESP 0–35; O2SAT 13–100; BMI 25.1; BMI 32.0
[2025-09-30] MEDS: NOREPINEPHRINE BITARTRATE/D5W 8 MG/250 ML PLAST..BAG 1.88 MG IV (19:51)
--- NOTE | 2025-09-30 19:54 | ECG_ITS ---
APPROVED REPORT Exam: Resting ECG HR:115 bpm ECG Measurements Heart Rate 115 AXES AZ 165 P 69 QRSd 88 QRS -62 QT 302 T 77 QTc 370 Conclusion SINUS TACHYCARDIA PATTERN CONSISTENT WITH PULMONARY DISEASE LEFT ANTERIOR FASCICULAR BLOCK [QRS AXIS <= -45, QR IN I, RS IN II] NONSPECIFIC ST & T-WAVE ABNORMALITY ABNORMAL ECG INTERPRETATION BASED ON A DEFAULT AGE OF [address] depression septal anterior leads Electronically signed by : KANDIS DOMÍNGUEZ, 10/01/2025 13:58:12
[2025-09-30] MEDS: LIDOCAINE 1% 10ML MDV 10 ML SUBCUT (19:55)
--- NOTE | 2025-09-30 20:11 | XR_ITS ---
PROCEDURE INFORMATION: Exam: XR Chest Exam date and time: 09/30/2025 7:58 PM Age: 74 years old Clinical indication: Device placement; Other: Intubation TECHNIQUE: Imaging protocol: Radiologic exam of the chest. Views: 1 view. COMPARISON: CR XR CHEST 2V 09/30/2025 1:24 PM FINDINGS: Tubes, catheters and devices: Intubated with endotracheal tube terminating 3.5 cm above the darcy. Pacer pad and CPR pack overlie the chest. Lungs: Stable left mid/basal lung scarring Pleural spaces: No pleural effusion. No pneumothorax. Heart/Mediastinum: Stable cardiomediastinal silhouette. Diaphragm: Elevation of the left hemidiaphragm as before. Bones/joints: No acute osseous abnormality. IMPRESSION: Interval intubation with endotracheal tube terminating 3.5 cm above the darcy.
--- NOTE | 2025-09-30 20:25 | CT_ITS ---
PROCEDURE INFORMATION: Exam: CT Head Without Contrast Exam date and time: 09/30/2025 8:28 PM Age: 74 years old Clinical indication: Condition or disease; Other: Post code TECHNIQUE: Imaging protocol: Computed tomography of the head without contrast. Radiation optimization: All CT scans at this facility use at least one of these dose optimization techniques: automated exposure control; mA and/or kV adjustment per patient size (includes targeted exams where dose is matched to clinical indication); or iterative reconstruction. COMPARISON: No relevant prior studies available. FINDINGS: Brain: Normal. No hemorrhage. Unremarkable white matter. No mass effect. Large calcification is seen in the right temporal lobe Cerebral ventricles: No ventriculomegaly. Paranasal sinuses: Visualized sinuses are unremarkable. No fluid levels. Mastoid air cells: Visualized mastoid air cells are well aerated. Bones: Unremarkable. No acute fracture. Soft tissues: Unremarkable. IMPRESSION: No acute intracranial abnormality.
--- NOTE | 2025-09-30 20:26 | PC.NURSE ---
Called [facility] regarding a transfer on this pt. transferred the call to
[2025-09-30 20:29] LABS: Alanine Aminotransferase 39 U/L (12-78); Albumin Level 3.9 g/dl (3.5-5.0); Albumin/Globulin Ratio 1.6 (1.1-1.8); Alkaline Phosphatase 63 U/L (38-126); Anion Gap 22.6 mEq/L (5-15); Aspartate Amino Transferase 62 U/L (17-59); Bilirubin,Total 1.1 mg/dl (0.2-1.3); Blood Urea Nitrogen 18 mg/dl (9-20); Calcium 7.7 mg/dl (8.4-10.2); Carbon Dioxide 25 mmol/L (22.0-30.0); Chloride 106 mmol/L (98-107); Creatinine,Serum 1.00 mg/dl (0.66-1.25); Estimated Glomerular Filt Rate 73 ml/min (>60); GFR (African American) 89 ML/MIN (>60); Globulin 2.5 g/dL (1.3-3.2); Glucose 197 mg/dl (74-100); Hematocrit 43.5 % (42.0-52.0); Hemoglobin 13.5 g/dL (14.1-18.0); Immature Granulocytes % 0.4 %; Mean Corpuscular HGB Conc 31.0 g/dL (31.8-35.4); Mean Corpuscular Hemoglobin 28.1 pg (27.0-31.2); Mean Corpuscular Volume 90.4 fl (80-94); Nucleated Red Blood Cells % 0 %; Platelet Count 202 K/mm3 (142-424); Potassium 3.6 mmoL/L (3.5-5.1); Red Blood Count 4.81 M/mm3 (4.60-6.20); Red Cell Distribution Width-SD 47.5 fL; Total Protein,Serum 6.4 g/dl (6.3-8.2); White Blood Count 11.1 K/mm3 (4.8-10.8)
[2025-09-30 20:30] LABS: Activated Partial Thrombo Time 25.1 seconds (22.8-30.6); INR 1.16 (0.9-1.1); Prothrombin Time 12.7 seconds (10.1-12.5)
[2025-09-30] MEDS: NICARDIPINE HCL 25 MG in 0.9 % SODIUM CHLORIDE 240 ML 50 MG IV (20:31)
[2025-09-30 20:32] LABS: Sodium 150 mmol/L (136-145)
--- NOTE | 2025-09-30 20:32 | CT_ITS ---
PROCEDURE INFORMATION: Exam: CTA Abdomen and Pelvis With Contrast Exam date and time: 09/30/2025 10:06 PM Age: 74 years old Clinical indication: Condition or disease; Additional info: Post code TECHNIQUE: Imaging protocol: Computed tomographic angiography of the abdomen and pelvis with contrast. Exam focused on the arteries. 3D rendering (Not supervised by radiologist): MIP and/or 3D reconstructed images were created by the technologist. Radiation optimization: All CT scans at this facility use at least one of these dose optimization techniques: automated exposure control; mA and/or kV adjustment per patient size (includes targeted exams where dose is matched to clinical indication); or iterative reconstruction. Contrast material: ISO 370; Contrast volume: 80 ml; Contrast route: INTRAVENOUS (IV); COMPARISON: CT ANGIO CHEST PE PROTOCOL 09/30/2025 10:06 PM FINDINGS: Tubes, catheters and devices: Orogastric tube tip is in the stomach. The stomach is mildly distended with fluid and a small amount of gas. No focal gastric wall thickening. Left femoral central line tip is in the distal left common iliac vein. Pleural spaces: Left pneumothorax is further discussed on today's chest CT angiogram report. Aorta: Aortoiliac atherosclerois. No occlusion or significant stenosis. No abdominal aortic aneurysm. Celiac and mesenteric arteries: No occlusion or significant stenosis. Renal arteries: No occlusion or significant stenosis. Right iliac arteries: No occlusion or significant stenosis. Left iliac arteries: No occlusion or significant stenosis. Liver: No focal liver lesion is identified. Gallbladder and biliary ducts: Cholelithiasis without evidence of acute cholecystitis. Pancreas: No peripancreatic inflammatory change or significant pancreatic duct dilation. Spleen: Splenic size is within normal limits. No focal splenic lesion is identified. Adrenal glands: The adrenal glands are unremarkable. Kidneys and ureters: The kidneys enhance symmetrically. No hydronephrosis. No renal perfusion defects or perinephric inflammation. Stomach and bowel: No small bowel obstruction or acute inflammatory change. Diverticulosis of the colon without evidence of acute diverticulitis. The colon is not obstructed. Appendix: The appendix is identified. No evidence of acute appendicitis. Intraperitoneal space: No free fluid or free air. Retroperitoneal space: No retroperitoneal hematoma. Lymph nodes: Unremarkable. No enlarged lymph nodes. Urinary bladder: Pineda catheter within the bladder. Reproductive: Mildly enlarged prostate. Bones/joints: No acute fracture is identified. Mild dextrocurvature of the lumbar spine with multilevel degenerative change. Soft tissues: Soft tissue gas along the left chest wall. IMPRESSION: 1. No acute findings in the abdomen/pelvis. 2. Cholelithiasis without evidence of acute cholecystitis. 3. Diverticulosis of the colon without evidence of acute diverticulitis. 4. Left pneumothorax is further discussed on today's chest CT angiogram report.
--- NOTE | 2025-09-30 20:32 | CT_ITS ---
PROCEDURE INFORMATION: Exam: CTA Chest With Contrast Exam date and time: 09/30/2025 10:06 PM Age: 74 years old Clinical indication: Condition or disease; Additional info: Post code TECHNIQUE: Imaging protocol: Computed tomographic angiography of the chest with contrast. Exam focused on the arteries. 3D rendering (Not supervised by radiologist): MIP and/or 3D reconstructed images were created by the technologist. Radiation optimization: All CT scans at this facility use at least one of these dose optimization techniques: automated exposure control; mA and/or kV adjustment per patient size (includes targeted exams where dose is matched to clinical indication); or iterative reconstruction. Contrast material: ISO 370; Contrast volume: 80 ml; Contrast route: INTRAVENOUS (IV); COMPARISON: CR XR CHEST PORTABLE 09/30/2025 8:23 PM FINDINGS: Tubes, catheters and devices: Endotracheal tube tip is roughly 3 cm above the darcy. Orogastric tube tip and proximal port are in the stomach. Left chest tube enters between the 5th and 6th ribs with the tip along the lateral aspect of the superior segment of the left lower lobe. The tip is indenting and possibly mildly extending into the left lower lobe. Pulmonary arteries: Assessment of the pulmonary arteries is limited by motion artifact. No definite pulmonary embolism is identified. There is no large central/saddle pulmonary embolism. Aorta: The thoracic aorta is atherosclerotic but non-aneurysmal. No evidence of dissection. Lungs: Extensive bronchial wall thickening. No consolidation or pulmonary edema. 5 mm nodule in the right upper lobe (series 8, image 162). Scattered patchy nodular densities in the left lung. Pleural spaces: Left pneumothorax is again noted (roughly 15-20%) Comparing the adhesive bonding machine operator image from the prior chest radiograph, the pneumothorax appears to be roughly stable in size. No right pneumothorax. No pleural effusion. Heart: The heart is not enlarged. No pericardial effusion. Lymph nodes: No enlarged lymph nodes. Intraperitoneal space: Please see the abdomen and pelvis CT report for findings below the diaphragm. Bones/joints: Acute fracture of the left 4th rib. Acute fracture of the right 4th and 5th ribs. No segmental fracture. No acute fracture of the visualized spine. Multilevel spinal degenerative change. No acute fracture of the sternum or visualized shoulder girdles. Soft tissues: Soft tissue gas along the left chest wall is again noted. IMPRESSION: 1. Left chest tube enters between the 5th and 6th ribs with the tip along the lateral aspect of the superior segment of the left lower lobe. The tip is indenting and possibly mildly extending into the left lower lobe. 2. Left pneumothorax is roughly stable in size. 3. Extensive bronchial wall thickening. 4. Assessment of the pulmonary arteries is limited by motion artifact. No definite pulmonary embolism is identified. There is no large central/saddle pulmonary embolism. 5. Acute fracture of the left 4th rib. Acute fracture of the right 4th and 5th ribs. No segmental fracture. 6. 5 mm nodule in the right upper lobe (series 8, image 162). Scattered patchy nodular densities in the left lung. For patients at low risk (minimal or absent history of smoking and of other known risk factors), no routine follow-up is indicated. For patients at high risk (history of smoking or of other known risk factors), consider a follow-up chest CT in 12 months. (Reference: Regis) THIS REPORT CONTAINS FINDINGS THAT MAY BE CRITICAL TO PATIENT CARE. The findings were verbally communicated via telephone conference with ANY Gifford at 10:55 PM EST on 09/30/2025. The findings were acknowledged and understood. REFERENCES: Regis Munoz et al. Guidelines for Management of Incidental Pulmonary Nodules Detected on CT Images: From the Fleischner Society 2017. Radiology. 2017;284(1):228-243.
--- NOTE | 2025-09-30 20:36 | XR_ITS ---
PROCEDURE INFORMATION: Exam: XR Chest Exam date and time: 09/30/2025 8:23 PM Age: 74 years old Clinical indication: Device placement; Chest tube; Additional info: Diagnostic TECHNIQUE: Imaging protocol: Radiologic exam of the chest. Views: 1 view. COMPARISON: CR XR CHEST PORTABLE 09/30/2025 7:58 PM FINDINGS: Tubes, catheters and devices: Left chest tube is now in place. Endotracheal tube tip is roughly 4.5 cm above the darcy. Orogastric tube enters the stomach before descending beyond the field of view. Transcutaneous pacer pad remains in place. Lungs: No consolidation or pulmonary edema. Pleural spaces: No pleural effusion. Small left pneumothorax. No right pneumothorax. Heart/Mediastinum: The cardiomediastinal silhouette is not enlarged. Bones/joints: Visualized bones demonstrate no acute abnormality. Soft tissues: Soft tissue gas along the left chest wall. IMPRESSION: Small left pneumothorax. A left chest tube is in place.
[2025-09-30 20:37] LABS: Total Cells Counted 100
[2025-09-30 20:39] LABS: Anisocytosis 1+; Burr Cells 1+; Lipase 48 U/L (23-300); Macrocytosis 1+; Microcytosis 1+; Poikilocytosis 1+; Tear Drop Cells 1+
[2025-09-30 20:40] LABS: Ovalocytes 1+; Target Cells 1+
[2025-09-30 20:41] LABS: Polychromasia 1+
[2025-09-30 20:42] LABS: Acanthocytes 1+
[2025-09-30] MEDS: IPRATROPIUM/ALBUTEROL 3 ML NEB 9 ML IH (20:54)
[2025-09-30] MEDS: EPINEPHrine 5 MG in 0.9 % SODIUM CHLORIDE 250 ML 15.3 MG IV (21:05)
[2025-09-30] MEDS: ALBUTEROL 0.083% 2.5 MG/3 ML NEB 20 MG IH (21:17)
--- NOTE | 2025-09-30 21:21 | PC.NURSE ---
193- ED staff called to assisted someone out of the patients private vehicle at the ED entrance. Upon arrival to the private vehicle, this Rn, the Ed slash trimmer and senior cytogenetic technologist saw the patient completely stiff and laying sideways in the passenger seat. the friend that brought him stated that he took a pill he was just prescribed and started acting like this so she brought him back . Ed staff tried to get the patient out of the vehicle and the patient would continually go stiff, began foaming at the mouth, and was agonally breathing. ED staff felt it was more safe at the time to lay the patient on the ground safely while other ED staff brought an ED stretcher out. the patient was lifted by 4 ED staff members onto the stretcher and the patient was immediately taken to room 4. once chapito patient was brought to room 4, his initial vitals followed: oxygen 13% room air, 32 heart rate, and unable to obtain an accurate blood pressure. decision was made by Dr Alonzo to BEGIN ACLS PROTOCOL. 1932- Compressions began per verbal orders, Code blue called overhead. 1933-patient began being bagged by respiratory, 16 L AC established. 1934- 1 mg epi in per MD Alonzo, verbal ordered repeated and correct. 1935- compressions paused, patient in PEA, compressions resumed 1936- bagging paused temporarily, LMA established by respiratory, bagging resumed 1937- compressions paused, PEA noted, CPR resumed. MD Alonzo gave verbal orders for 1 mg epi IV, verbal orders repeated and correct. 1940- compressions paused, pulse check initially PEA, then ROSC obtained. 1941- MD Alonzo gave verbal orders to prepare for intubation. verbal orders repeated and correct. 1942- ETT established, 7.5, 28 cm at the teeth, positive color change noted. Xray called for STAT chest xray. 1944- second line established, 20 R AC 1950- attempting left radial arterial line, norepi drip started at 1mcg/kg/min per verbal order by , verbal order repeated and correct. 1953- EKG done 1954- arterial line established in left radial artery by [place] REDDING 1956- cardiac US being done, xray at bedside 1957- Dr Alonzo on phone with Dr Smith 2000- arterial line hooked up, initial BP 165/104, verbal orders by MD to stop norepi drip, orders repeated and correct. norepi stopped. 2001- attempt for OG tube being made 2008- verbal order by MD for propofol drip, verbal order repeated and correct. propofol drip started 2012- burgess catheter inserted. 2014- incision for left mid axillary chest tube made by MD 2019- left mid axillary chest tube inserted, occlusive dressing applied. 2033- 100 mg propofol IVP done by MD Alonzo at this time. verbal ordered by MD to start cardene drip at 5mg/hr. verbal orders repeated and correct, cardene drip started. 2038-verbal orders given to increase cardene drip to 7.5mg/hr by MD. verbal orders repeated and correct, cardene drip increased. 2040- verbal orders given to increase cardene drip to 10mg/hr, verbal orders repeated and correct, cardene drip increased. 2053- verbal orders by MD Alonzo to decrease cardene drip to 7.5 mg/hr, verbal order repeated and correct, cardene decreased 2054- verbal orders given to stop cardene drip by MD, verbal orders repeated and correct. cardene drip stopped. 2102- verbal orders given y to stop propofol, verbal orders repeated and correct, propofol stopped. 2104- verbal orders given by MD to begin epi drip at 5 mcg/kg/min, verbal orders repeated and correct. epi drip started 2109- verbal orders given to increase epi drip to 15mcg/kg/min, verbal orders repeated and correct. epi drip increased. 2111- verbal orders given by MD to start norepinepherine drip at 8mcg/kg/min for BP 59/40, verbal orders repeated and correct, norepinepherine drip started. 2113- MD gave verbal orders to increase noreip drip to 12 mcg/kg/min, verbal orders repeated and correct. 2116- MD gave verbal orders for continuous duoneb at this time, verbal orders repeated and correct, continuous duoneb started at this time by respiratory. 16G established in R AC 2134- triple lumen inserted by MD Alonzo at this time. 2137- verbal orders given by MD to decrease the epi drip to 10 mcg/kg/mg 2147- verbal orders given by MD to restart propofol drip at 30, verbal orders repeated and correct, prop restarted 2199- patient to CT with ED staff and respiratory 2213- back from CT scan 2219- verbal orders given from MD to increase propofol to 50, decrease norepi to 8 and decrease epi to 5, verbal orders repeated and correct. all drips changed per provider order. 222- zosyn administered at this time. 224- belongings given to family in the lobby
[2025-09-30] MEDS: SODIUM CHLORIDE 0.9% 10ML SYR (RAD ONLY) 10 ML IV (22:21)
[2025-09-30] MEDS: 0.9 % SODIUM CHLORIDE 50 ML VIAL IV (22:21)
[2025-09-30] MEDS: IOPAMIDOL-370 (76%);100ML BOTTLE 80 ML IV (22:21)
[2025-09-30] MEDS: PIPERACILLIN/TAZO 4.5 GM in 0.9 % SODIUM CHLORIDE 100 ML IV (22:22)
--- NOTE | 2025-09-30 22:22 | ECG_ITS ---
APPROVED REPORT Exam: Resting ECG HR:96 bpm ECG Measurements Heart Rate 96 AXES DE 165 P 71 QRSd 89 QRS -57 QT 385 T 66 QTc 438 Conclusion SINUS RHYTHM PATTERN CONSISTENT WITH PULMONARY DISEASE LEFT ANTERIOR FASCICULAR BLOCK [QRS AXIS <= -45, QR IN I, RS IN II] ABNORMAL ECG Electronically signed by : KANDIS DOMÍNGUEZ, 10/01/2025 13:56:40
--- NOTE | 2025-09-30 22:46 | HMH.EDGENADL ---
Discharge Plan Disposition Patient Disposition: Xfer Other Condition: Critical Prescriptions Prescriptions: No Action ipratropium-albuterol 0.5 mg-3 mg(2.5 mg base)/3 mL solution for nebulization 3 ml inhalation Q6H PRN (Reason: wheezing) Qty: 90 0RF azithromycin 250 mg tablet See Rx Instructions PO .COMPLEX Qty: 6 0RF Rx Instructions: For 250 mg dose pack: take 500 mg today (day 1), then 250 mg for 4 days (days 2-5) PO prednisone 20 mg tablet 20 mg PO BID Qty: 10 0RF benzonatate 100 mg capsule 100 mg PO TID PRN (Reason: cough) Qty: 30 0RF guaifenesin [Mucinex] 1,200 mg tablet extended release 12hr 1,200 mg PO BID Qty: 20 0RF albuterol sulfate 2.5 mg/0.5 mL solution for nebulization 2.5 mg inhalation Q6H PRN (Reason: bronchospasm) Qty: 30 0RF albuterol sulfate [Ventolin HFA] 90 mcg/actuation HFA aerosol inhaler 2 inh inhalation Q6H PRN (Reason: shortness of breath or wheezing) Qty: 8.5 0RF prednisone 20 mg tablet 40 mg PO DAILY 4 Days Qty: 8 0RF Rx Instructions: Start this medication on 09/15/2025. Take 40 mg daily for 4 days. benzonatate 200 mg capsule 200 mg PO TID PRN (Reason: cough) Qty: 30 0RF ipratropium-albuterol 0.5 mg-3 mg(2.5 mg base)/3 mL solution for nebulization 3 ml inhalation Q6H PRN (Reason: wheezing) Qty: 90 0RF guaifenesin 1,200 mg tablet extended release 12hr 1,200 mg PO BID PRN (Reason: cough) Qty: 30 0RF Referrals Follow up/Referrals: Provider,Referral, MD [Primary Care Provider, Medical] - See instructions Clinical Impressions Clinical Impression: Cardiac arrest, Acute hypoxemic respiratory failure, Bronchoconstriction, Multiple fractures of ribs, Hemopneumothorax on left, Acute respiratory acidosis Stand Alone Forms Stand Alone Forms: Transfer Record - ED Print Language Print Language: Slovak Discharge ED Provider: Jerrell Alonzo Adult HPI General Chief complaint: Cardiac Arrest/CPR Stated complaint: cardiac arrest Time Seen by Provider: 09/30/25 20:26 Mode of Arrival: Ambulatory Source of Information: Patient Description of Symptoms (Recalled from ER Triage Doc. by RN): 1931 ER staff called to front of ED at [facility] for assiastacne getting a patient out of car. patient was completely stiff, foaming at the mouth, and agonally breathing. patient immediately placed on ER stretcher brought out by staff and taken to room 4, see nursing note for remainder History of Present Illness HPI narrative: This is a 74-year-old male patient, with past medical history of asthma, who is presenting to the emergency department today for evaluation of shortness of breath. Patient was anxious in the emergency department earlier today for a cough and a sensation of feeling like something was stuck in his throat. He was subsequently discharged home. Patient presents with his girlfriend who drove him here. She states that prior to arrival he tried to take some pills without concomitantly swallowing liquid. She feels that he aspirated on the pills and then began experiencing dyspnea. Upon arrival to the emergency department she pulled her car to the front door and the patient subsequently began experiencing seizure-like activity in the car. Medical personnel got to the car and remove the patient from the vehicle. Upon arrival to the resuscitation bay the patient was purple and pulseless. CPR was initiated Related Data Previous Rx's ?Medication ?Instructions ?Recorded azithromycin 250 mg tablet See Rx Instructions PO .COMPLEX #6 08/20/25 tabs benzonatate 100 mg capsule 100 mg PO TID PRN cough #30 caps 08/20/25 guaifenesin 1,200 mg tablet, 1,200 mg PO BID #20 tabs 08/20/25 extended release 12 hr (Mucinex) ipratropium 0.5 mg-albuterol 3 mg 3 ml inhalation Q6H PRN wheezing 08/20/25 (2.5 mg base)/3 mL nebulization #90 mL soln prednisone 20 mg tablet 20 mg PO BID #10 tabs 08/20/25 albuterol sulfate 2.5 mg/0.5 mL 2.5 mg (0.5 mL) inhalation Q6H PRN 09/14/25 solution for nebulization bronchospasm #30 ea albuterol sulfate 90 mcg/actuation 2 inh inhalation Q6H PRN shortness 09/14/25 aerosol inhaler (Ventolin HFA) of breath or wheezing #8.5 grams prednisone 20 mg tablet 40 mg (2 x 20 mg) PO DAILY 4 days 09/14/25 #8 tabs benzonatate 200 mg capsule 200 mg PO TID PRN cough #30 caps 09/30/25 guaifenesin 1,200 mg tablet, 1,200 mg PO BID PRN cough #30 tabs 09/30/25 extended release 12 hr ipratropium 0.5 mg-albuterol 3 mg 3 ml inhalation Q6H PRN wheezing 09/30/25 (2.5 mg base)/3 mL nebulization #90 mL soln Allergies Allergy/AdvReac Type Severity Reaction Status Date / Time ibuprofen Allergy Unknown Verified 08/20/25 11:[address] [facility] Disclaimer: The information contained in this section may have been updated after the patient was seen, as this information can be updated by other users. Medical History No significant past medical history Social History Smoking Status: Unknown if ever smoked alcohol intake: never current occupational status: other Travel in the last 8 weeks?: None Have you lived/traveled outside [place] in past 30 days?: No Contact w/someone who lives/traveled outside US past 30 days?: No Exposure to someone with infectious disease in past 14 days?: No Do you have a fever (greater than 100.4 F or 38 C)?: No Have you tested positive for COVID-19?: No Exposed to someone with COVID-19 in past 14 days?: No Do you have a sore throat?: No Do you have a cough?: No Do you have any weakness?: No Do you have any diarrhea?: No Are you experiencing any unusual bleeding?: No Do you have any muscle aches/pain?: No Do you have any abdominal pain?: No Are you experiencing loss of taste or smell?: No Other Medical History Have you received the Flu Vaccine for this season: Yes Have you received the Pneumonia Vaccine: Yes ROS Obtained: Yes Systems reviewed as appropriate & no additional complaints except as documented Physical Exam General General appearance: other (See MDM) Respiratory Respiratory exam: Present other (See MDM) Cardiovascular Cardiovascular exam: Present other (See MDM) Neurological Exam Neurological exam: Present other (See MDM) Medical Decision Making Medical Records Medical records reviewed: Yes I reviewed the patient's medical records. Screening: Per USPSTF and CDC recommendations, given the prevalence of disease in our region, it is our hospital?s policy to screen for HIV and viral Hepatitis for all patients aged 18 and over and those with ongoing risk factors. Camilo Inquiry Pt receiving controlled substance: No Camilo was queried for this patient: No Vital Signs: 09/30/25 19:46 09/30/25 20:30 09/30/25 20:45 Pulse Rate Respiratory Rate 0 L 35 H Blood Pressure Blood Pressure Mean 02 Sat by Pulse Oximetry 13 L 98 Oxygen Delivery Method Room Air Fraction of Inspired Oxygen 100 100 09/30/25 21:05 09/30/25 21:30 09/30/25 21:36 Pulse Rate 96 H 98 H Respiratory Rate 26 H 21 20 Blood Pressure 102/68 L 102/76 L Blood Pressure Mean 79 80 02 Sat by Pulse Oximetry 100 100 100 Oxygen Delivery Method Fraction of Inspired Oxygen 100 09/30/25 21:39 09/30/25 21:41 09/30/25 21:43 Pulse Rate 98 H 98 H 99 H Respiratory Rate 25 H 25 H 26 H Blood Pressure 116/72 116/79 112/84 Blood Pressure Mean 81 86 86 02 Sat by Pulse Oximetry 100 100 100 Oxygen Delivery Method Fraction of Inspired Oxygen 09/30/25 22:14 09/30/25 22:16 09/30/25 22:18 Pulse Rate 94 H 96 H 96 H Respiratory Rate 31 H 30 H 29 H Blood Pressure 148/75 H 134/83 150/96 H Blood Pressure Mean 99 92 107 02 Sat by Pulse Oximetry 99 99 100 Oxygen Delivery Method Fraction of Inspired Oxygen 09/30/25 22:21 09/30/25 22:23 09/30/25 22:26 Pulse Rate 97 H 96 H 96 H Respiratory Rate 29 H 26 H 25 H Blood Pressure 136/87 142/79 H 133/75 Blood Pressure Mean 97 94 94 02 Sat by Pulse Oximetry 99 100 100 Oxygen Delivery Method Fraction of Inspired Oxygen 09/30/25 22:31 09/30/25 22:33 09/30/25 22:41 Pulse Rate 95 H 94 H 93 H Respiratory Rate 25 H 24 24 Blood Pressure 129/80 129/88 134/89 Blood Pressure Mean 88 100 97 02 Sat by Pulse Oximetry 100 99 99 Oxygen Delivery Method Fraction of Inspired Oxygen 09/30/25 22:46 09/30/25 22:48 09/30/25 22:51 Pulse Rate 93 H 93 H 93 H Respiratory Rate 23 23 23 Blood Pressure 101/73 L 142/61 H 129/69 Blood Pressure Mean 82 88 89 02 Sat by Pulse Oximetry 99 99 100 Oxygen Delivery Method Fraction of Inspired Oxygen 09/30/25 22:53 09/30/25 22:55 09/30/25 22:58 Pulse Rate 93 H 93 H 94 H Respiratory Rate 24 24 22 Blood Pressure 147/123 H 135/91 H 109/69 L Blood Pressure Mean 128 105 82 02 Sat by Pulse Oximetry 100 99 100 Oxygen Delivery Method Fraction of Inspired Oxygen 09/30/25 23:00 09/30/25 23:03 09/30/25 23:04 Pulse Rate 95 H 95 H Respiratory Rate 23 23 25 H Blood Pressure 122/68 127/66 Blood Pressure Mean 73 86 02 Sat by Pulse Oximetry 100 100 100 Oxygen Delivery Method Fraction of Inspired Oxygen 100 09/30/25 23:05 Pulse Rate 92 H Respiratory Rate 23 Blood Pressure 113/79 Blood Pressure Mean 94 02 Sat by Pulse Oximetry 100 Oxygen Delivery Method Fraction of Inspired Oxygen Lab Data Lab Results 09/30/25 19:45: VBG pH 7.20 L, VBG pCO2 44.1, VBG pO2 33.7, VBG HCO3 17.0 L, VBG Total CO2 18.3 L, VBG O2 Saturation 60.5, VBG Base Excess -11.0 L, VBG Lactic Acid 6.1 H 09/30/25 19:50: WBC 11.1 H D, RBC 4.81, Hgb 13.5 L, Hct 43.5, MCV 90.4, MCH 28.1, MCHC 31.0 L, RDW 14.2, Plt Count 202, MPV 11.4 H, Neut % (Auto) 29.1 L, Lymph % (Auto) 53.5 H, Stokes % (Auto) 7.6, Eos % (Auto) 8.6, Baso % (Auto) 0.8, Neut # (Auto) 3.2, Lymph # (Auto) 5.9 H, Stokes # (Auto) 0.8, Eos # (Auto) 1.0 H, Baso # (Auto) 0.1, Total Counted 100, Neutrophils % (Manual) 28 L, Band Neutrophils % 5.0, Lymphocytes % (Manual) 46, Monocytes % (Manual) 7, Eosinophils % (Manual) 10 H, Basophils % (Manual) 4.0 H, Platelet Estimate Normal, Polychromasia 1+, Poikilocytosis 1+, Anisocytosis 1+, Microcytosis 1+, Macrocytosis 1+, Target Cells 1+, Tear Drop Cells 1+, Ovalocytes 1+, [place] Cells 1+, Acanthocytes (Spur) 1+, PT 12.7 H, INR 1.16 H, APTT 25.1, Sodium 150 H, Potassium 3.6, Chloride 106, Carbon Dioxide 25, Anion Gap 22.6 H, BUN 18, Creatinine 1.00, Estimated GFR 73, Est GFR ( Amer) 89, Glucose 197 H D, Calcium 7.7 L, Total Bilirubin 1.1, AST 62 H D, ALT 39 D, Alkaline Phosphatase 63, Total Protein 6.4, Albumin 3.9, Globulin 2.5, Albumin/Globulin Ratio 1.6, Lipase 48 09/30/25 20:25: VBG pH 6.89 L, VBG pCO2 97.3 H, VBG pO2 175.9 H, VBG HCO3 18.2 L, VBG Total CO2 21.2 L, VBG O2 Saturation 97.9 H, VBG Base Excess -14.9 L, VBG Lactic Acid 3.4 H 09/30/25 22:35: VBG pH 7.14 L, VBG pCO2 73.6 H, VBG pO2 68.0 H, VBG HCO3 24.5, VBG Total CO2 26.8, VBG O2 Saturation 90.4 H, VBG Base Excess -4.4 L, VBG Lactic Acid 5.1 H 09/30/25 19:50 09/30/25 19:50 Orders (Tests/Meds): ED MEDICATIONS Generic Name Dose Route Start Last Admin Trade Name Freq PRN Reason Stop Dose Admin Nicardipine HCl 25 mg/ Sodium 250 mls @ 50 mls/hr 09/30/25 20:25 09/30/25 20:55 Chloride IV 10/30/25 20:24 0 mg/hr .Q5H RADHA 0 mls/hr Protocol Titration 5 MG/HR Piperacillin Sod/Tazobactam 100 mls @ 200 mls/hr 09/30/25 21:45 09/30/25 23:32 Sod 4.5 gm/ Sodium Chloride IV 10/10/25 21:44 Infused [facility] Infusion Norepinephrine/Dextrose 8 mg in 250 mls @ 15 mls/hr 09/30/25 21:40 09/30/25 22:20 Levophed 8mg/250ml-D5w Premix IV 10/30/25 21:39 8 mcg/min .[id number] RADHA 15 mls/hr Protocol Titration 8 MCG/MIN Epinephrine HCl 5 mg/ Sodium 255 mls @ 12.24 mls/hr 09/30/25 21:45 09/30/25 22:20 Chloride IV 10/30/25 21:44 5 mcg/min .[id number] RADHA 15.3 mls/hr Protocol Titration 4 MCG/MIN Propofol 100 mls @ 4.763 mls/hr 09/30/25 23:12 09/30/25 22:20 Diprivan 10mg/Ml 100ml Bottle IV 10/30/25 23:11 50 mcg/kg/min .Q21H RADHA 23.81 mls/hr Protocol Titration 10 MCG/KG/MIN Miscellaneous 1 each 09/30/25 21:45 Vancomycin Consult Request NOTAPPLIC 10/30/25 21:44 [facility] Sodium Chloride 3 ml 09/30/25 22:39 Sodium Chloride 3% 15ml [facility] 10/30/25 22:38 ONCE PRN INDUCE SPUTUM COLLECTION Discontinued Medications Generic Name Dose Route Start Last Admin Trade Name Freq PRN Reason Stop Dose Admin Albuterol Sulfate 20 mg 09/30/25 21:17 09/30/25 21:17 Albuterol 0.083% 2.5 Mg/3 Ml [facility] 09/30/25 21:18 20 mg ONCE ONE Administration Albuterol/Ipratropium 9 ml 09/30/25 20:54 09/30/25 20:54 Ipratropium/Albuterol 3 Ml [facility] 09/30/25 20:55 9 ml ONCE ONE Administration Vancomycin/PEG/NADA/Lysine/Water 1.75 gm in 350 mls @ 175 mls/hr 09/30/25 22:00 Vancomycin 1.75gm/350ml (Peg) Premix IV 09/30/25 23:59 ONCE ONE Iopamidol 80 ml 09/30/25 22:20 09/30/25 22:21 Iopamidol-370 (76%);100ml Bottle IV 09/30/25 22:21 80 ml ONCE ONE Administration Lidocaine HCl 10 ml 09/30/25 20:06 09/30/25 19:55 Lidocaine 1% 10ml Mdv SUBCUT 09/30/25 20:07 10 ml ONCE ONE Administration Sodium Chloride 50 ml 09/30/25 22:20 09/30/25 22:21 0.9 % Sodium Chloride 50 Ml Vial IV 09/30/25 22:21 50 ml ONCE ONE Administration Sodium Chloride 10 ml 09/30/25 22:20 09/30/25 22:21 Sodium Chloride 0.9% 10ml Syr (Rad Only) IV 09/30/25 22:21 10 ml ONCE ONE Administration ORDERS Category Date Time Status CT angio abdomen pelvis Stat Cat Scan 09/30/25 20:[address] angio chest PE protocol Stat Cat Scan 09/30/25 20:[address] head/brain wo con Stat Cat Scan 09/30/25 20:25 Completed CXR --portable [XR chest portable] Stat Exams 09/30/25 23:11 Completed Chest XR -- portable [XR chest portable] Stat Exams 09/30/25 20:11 Completed Chest XR -- portable [XR chest portable] Stat Exams 10/01/25 00:03 Ordered XR chest portable Stat Exams 09/30/25 20:36 Completed Activated Partial Thrombo Time Stat Lab 09/30/25 19:50 Completed CBC w/Auto Diff [Complete Blood Count Auto Diff] Stat Lab 09/30/25 19:50 Completed CMP [Comprehensive Metabolic Panel] Stat Lab 09/30/25 19:50 Completed Lipase Stat Lab 09/30/25 19:50 Completed PT INR [Prothrombin Time INR] Stat Lab 09/30/25 19:50 Completed Sputum Culture & Gram Stain Stat Micro 09/30/25 20:10 Received VBG [Venous Blood Gas] Stat RT 09/30/25 19:45 Completed VBG [Venous Blood Gas] Stat RT 09/30/25 20:25 Completed VBG [Venous Blood Gas] Stat RT 09/30/25 22:35 Completed Medical Decision Narrative: This is a 74-year-old male patient, with past medical history of asthma, who is presenting to the emergency department today for evaluation of shortness of breath. Patient was anxious in the emergency department earlier today for a cough and a sensation of feeling like something was stuck in his throat. He was subsequently discharged home. Patient presents with his girlfriend who drove him here. She states that prior to arrival he tried to take some pills without concomitantly swallowing liquid. She feels that he aspirated on the pills and then began experiencing dyspnea. Upon arrival to the emergency department she pulled her car to the front door and the patient subsequently began experiencing seizure-like activity in the car. Medical personnel got to the car and remove the patient from the vehicle. Upon arrival to the resuscitation bay the patient was purple and pulseless. CPR was initiated. His comorbidities include a history of asthma with frequent nebulizer use. On physical examination the patient was purple and pulseless. Resuscitation was begun per usual ACLS protocol. We immediately established IV access in the left arm. We administered 1 amp of epi. At the first 2 pulse checks the patient did not have a pulse so we administered a second round of epinephrine. During the first round of ACLS we did obtain a VBG which was personally interpreted by me and demonstrated a pH of 7.2 and mild hypercapnia. We proceeded to get through the third round of chest compressions and obtained ROSC. At this point the patient had an LMA which was established by respiratory therapy at the time of arrest. Following ROSC, the began massively vomiting so we suctioned out his oropharynx and establish a definitive airway with a 7.5 endotracheal tube. Following placement of the endotracheal tube we obtained a chest x-ray which showed adequate placement of the endotracheal tube and no pneumothorax. Shortly after this unremarkable XR, the respiratory therapist alerted me that the patient was having significant difficulty bagging. I listened to the patient's breath sounds and he was diminished bilaterally, however breath sounds were nearly absent on the left side. At this moment in time I brought an ultrasound to the bedside and looked for lung sliding and the patient had a barcode sign on the left side of the chest but had a [place] sign on the right side of the chest. This constellation of findings seemed very consistent with a left-sided pneumothorax which I suspect to be due to left sided rib fractures from chest compressions. Therefore under sterile technique we placed a left-sided thoracostomy tube. Upon entering the pleural space there was a large gush of air as well as a small amount of blood consistent with hemopneumothorax. Following placement of this tube we obtained a second chest x-ray and we could better see that the patient had a pneumothorax and there was air tidaling in the atrium drainage device, consistent with proper drainage of his pneumothorax. At this time I placed a left-sided radial arterial line to better monitor the patient's pressures. We found that he was profoundly hypertensive with a blood pressure of 270 systolic and 120 diastolic. Therefore I started the patient on a Cardene drip. At this moment in time I touched base with [facility] for immediate transfer and they requested that we obtain CT scans prior to transfer. At this point in time the patient was connected to a mechanical ventilator and the respiratory therapist did not feel comfortable transporting the patient to CT because he had incredibly high peak alarms sounding on the ventilator. Upon listening to his chest again the patient sounded extraordinarily wheezy. He was only taking in 100 mL of tidal volume with each breath on the ventilator. At this point I obtained and inspiratory hold and found that the patient's Plateau pressure was normal. The combination of high peak pressures greater than 60 and normal Plateau pressures with wheezing on exam seemed clinically consistent with profound bronchoconstriction. Therefore we administered 3 DuoNebs to the patient followed by continuous albuterol through the endotracheal tube. During this process we did see improvement in the patient's peak pressures and his tidal volume began to recover. He also began to develop profound hypotension so the Cardene drip was stopped completely. His blood pressure did decrease to 50/30. Therefore I started the patient on epinephrine and attempt to help with his profound bronchoconstriction as well as with his blood pressure. His hypotension did not recover with cessation of Cardene and initiation of epinephrine however, his peak pressures did continue to drop and his tidal volumes continue to rise. For additional pressor therapy we started the patient on Levophed. We were in need of additional access so I did place a central line under completely sterile technique with the use of sterile gloves, sterile drape, sterile mask, sterile hat, and a sterile ultrasound probe cover. Femoral access was obtained in the left groin. Following this patient went to CT scan. On my independent read of the CT scan of the head there is no large intracranial hemorrhages but interpretation is limited by artifact. My read of the CT PE study shows that the chest tube does trace adequately along the chest wall, however it is completely surrounded by lung parenchyma which raises concern for parenchymal chest tube placement. I did discuss this directly with the radiologist and he states that the tip of the chest tube could potentially be within the lung parenchyma, however he feels that majority of the chest tube is within the pleural space and being encased by the lung. Upon return from CT scan, I wanted to ensure that the chest tube was in fact within the pleural space so we obtained a repeat chest x-ray to ensure that his pneumothorax was not enlarging as this would be expected with a tube placed within the lung parenchyma itself. On the chest x-ray the pneumothorax looks approximately the same as it did before with no significant enlargement. The chest tube has also somewhat retracted with the tip of the tube still within the chest cavity itself. On reevaluation the atrium drainage device still has an adequate tidal and air leak, and there is not large-volume blood coming from the chest tube so I did not feel that this is a tube that is in the parenchyma. Therefore given that the tube has retracted and is nearly out of the chest wall I do not feel safe bringing the patient to altitude in a helicopter without replaciong the chest tube. Chest tube was removed under sterile technique and a new chest tube, 24 Turkish, was replaced under sterile technique. I was able to sweep the inside of the chest cavity and confirmed that I was in the pleural space and directed the chest tube posteriorly and we got it to a deeper depth to prevent from retraction. At this time the patient is profoundly critically ill and he will ultimately necessitate care at a tertiary care center. Therefore I had an interactive discussion again with [facility] and they ultimately agreed to accept the patient for transfer. The patient was transferred in critically ill condition by helicopter ambulance to [facility] Throughout this encounter I dedicated 120 minutes of critical care time which included chest tube placement, central line placement, arterial line placement, interpretation of ABGs, communicating with consultants, and documentation. Procedures Chest Tube Chest Tube 1: Chest tube type: Surgical Chest Tube Location: left Chest Tube Prep: Yes betadine prep and sterile drapes applied Local Anesthetic: lidocaine 1% Incision Made With: #10 blade Post Procedure: sutured to skin and sterile dressing applied Tube Drainage: other (Air) Post Procedure CXR?: Yes Patient Tolerated Procedure: Yes Central Line Placement Left Femoral: Time Out Performed: Yes Patient Placed on Monitor/Pulse Ox: Yes MD Prep: mask, gown and gloves Central Line Prep: Chlorhexidine scrub Local Anesthetic: lidocaine 1% Ultrasound Used for Placement: Yes Central Line Lumen Inserted: triple Post Procedure: sutured in place, good blood return, all ports aspirated, flushed, capped and sterile dressing applied Patient Tolerated Procedure: well and no complications Complications: none Arterial Line Size (Gauge): 20 Technique Used: guide wire technique Post-Procedure: line sutured into place and dry sterile dressing placed Patient Tolerated Procedure: well Complications: none Site: left and radial Critical Care Critical Care Time Critical Care Time: Yes Attestation: On 09/30/25, the high probability of a clinically significant, sudden or life threatening deterioration of the following system(s) required my full and direct attention, intervention and personal management. The time I documented below is in addition to time spent performing reported procedures but includes the following listed in this critical care notation. Total Time Total Critical Care Time: 120
[2025-09-30 22:47] LABS: VBG HCO3 17.0 mmol/L (23-30); VBG PCO2 44.1 mmol/L (35-51); VBG PH 7.20 mmol/L (7.31-7.41); VBG PO2 33.7 mmol/L (28-40)
[2025-09-30 22:48] LABS: Lactate Venous 6.1 mmol/L (0.4-2.0)
[2025-09-30 22:48] LABS: VBG HCO3 18.2 mmol/L (23-30); VBG PCO2 97.3 mmol/L (35-51); VBG PO2 175.9 mmol/L (28-40)
[2025-09-30 22:49] LABS: Lactate Venous 3.4 mmol/L (0.4-2.0); VBG PH 6.89 mmol/L (7.31-7.41)
[2025-09-30 22:49] LABS: VBG HCO3 24.5 mmol/L (23-30); VBG PCO2 73.6 mmol/L (35-51); VBG PO2 68.0 mmol/L (28-40)
[2025-09-30 22:50] LABS: Lactate Venous 5.1 mmol/L (0.4-2.0); VBG PH 7.14 mmol/L (7.31-7.41)
--- NOTE | 2025-09-30 23:11 | XR_ITS ---
PROCEDURE INFORMATION: Exam: XR Chest Exam date and time: 09/30/2025 11:14 PM Age: 74 years old Clinical indication: Abnormal findings; Other: Eval ptx TECHNIQUE: Imaging protocol: Radiologic exam of the chest. Views: 1 view. COMPARISON: CT ANGIO CHEST PE PROTOCOL 09/30/2025 10:06 PM FINDINGS: Tubes, catheters and devices: Left chest tube has been pulled back roughly 5 cm. The proximal port may no longer be in the pleural space. Endotracheal tube and orogastric tube are not significantly changed in position. Lungs: No consolidation or pulmonary edema. Pleural spaces: No pleural effusion. Left pneumothorax is not significantly changed. Heart/Mediastinum: The cardiomediastinal silhouette is not enlarged. Bones/joints: No significant change. Soft tissues: Soft tissue gas along the left chest wall is again noted. IMPRESSION: 1. Left chest tube has been pulled back roughly 5 cm. The proximal port may no longer be in the pleural space. 2. Left pneumothorax is not significantly changed.
[2025-09-30 23:45] LABS: Reflex Lactic Add Lactic Reflex
--- NOTE | 2025-10-01 00:03 | XR_ITS ---
PROCEDURE INFORMATION: Exam: XR Chest Exam date and time: 09/30/2025 11:57 PM Age: 74 years old Clinical indication: Device placement; Chest tube; Additional info: Placement of chest tube TECHNIQUE: Imaging protocol: Radiologic exam of the chest. Views: 1 view. COMPARISON: CR XR CHEST PORTABLE 09/30/2025 11:14 PM FINDINGS: Tubes, catheters and devices: Left chest tube has been advanced. Lungs: No consolidation or pulmonary edema. Pleural spaces: Left pneumothorax is not significantly changed. Heart/Mediastinum: The cardiomediastinal silhouette is not enlarged. Bones/joints: No significant change. Soft tissues: Soft tissue gas along the left chest wall is again noted. IMPRESSION: Left chest tube has been advanced.
[2025-10-01 00:52] VITALS: BP 136/89; PULSE 89; RESP 22; TEMP 37.2; O2SAT 100
--- NOTE | 2025-10-02 06:27 | PC.NURSE ---
Face sheet sent to [phone].
== END 2025-10-01 00:52 | disposition other institution (70) ==
PROVIDERS: Emergency Provider Student in an Organized Health Care Education/Training Program
DX: I46.9 Cardiac arrest, cause unspecified (principal); J96.01 Acute respiratory failure with hypoxia; J94.2 Hemothorax; S22.43XA Multiple fractures of ribs, bilateral, initial encounter for closed fracture; E87.29 Other acidosis; R74.02 Elevation of levels of lactic acid dehydrogenase [LDH]; X58.XXXA Exposure to other specified factors, initial encounter
CPT/HCPCS: 31500; 32551; 70450; 71045; 71275; 74174; 76942; 80053; 82803; 83690; 85007; 85025; 85027; 85610; 85730; 87070; 87205; 92950; 93005; 94002; 96365; 96366; 96367; 99285; 99291; 99292; C1751; J0169; J2404; J2543; J2704; J7050; Q9967